=== PATIENT | male | born 1975 | race Caucasian/White ===

== ENCOUNTER 2020-07-23 01:07 | Inpatient (IN) | payer MEDICARE, SELFPAY ==
[2020-07-23] VITALS (16 sets, daily range): BP systolic 134–165; BP diastolic 75–99; PULSE 89–111; RESP 16–20; TEMP 36.5–36.9; O2SAT 95–100; BMI 27.7
[2020-07-23 01:45] LABS: COVID19 -Nasal RAPID Negative (Negative)
[2020-07-23 02:15] LABS: Add Manual Diff / Slide Review NO; Basophils Absolute Auto 100 /uL (0-100); Basophils Percent Auto 0.6 % (0-2); Eosinophils Absolute Auto 200 /uL (0-450); Eosinophils Percent Auto 1.9 % (2-4); Hematocrit 45.1 % (41-53); Hemoglobin 15.5 g/dL (13.5-17.5); Lymphocytes Absolute Auto 1300 /uL (1100-4500); Lymphocytes Percent Auto 14.8 % (25-40); Mean Corpuscular HGB Conc 34.3 % (30-36); Mean Corpuscular Hemoglobin 31.4 PG (26-34); Mean Corpuscular Volume 91.6 fL (80-100); Monocytes Absolute Auto 1000 /uL (0-900); Monocytes Percent Auto 11.5 % (3-14); Neutrophils Absolute Auto 6200 /uL (1500-7000); Neutrophils Percent Auto 71.2 % (50-75); Platelet Count 209 X10^3/uL (150-400); Red Blood Cell Count 4.93 X10^6/uL (4.5-5.9); White Blood Cell Count 8.7 X10^3/uL (4.5-11.0)
[2020-07-23] MEDS: KETOROLAC 60 MG/2 ML VIAL 15 MG IV (02:16)
[2020-07-23] MEDS: LACTATED RINGERS 1,000 ML 1000 ML IV (02:16)
[2020-07-23] MEDS: VANCOMYCIN 1,500 MG/300 ML PIGGYBACK 200 MG IV ×3 (02:19→18:59)
[2020-07-23 02:21] LABS: Lactate (Lactic Acid) 1.3 mmol/L (0.7-2.1)
[2020-07-23 02:25] LABS: D Dimer 595 ng/mL (<230)
[2020-07-23 02:31] LABS: Alanine Aminotransferase 61 IU/L (<50); Albumin 3.6 g/dL (3.5-5.0); Albumin Globulin Ratio 1.1 (1.0-2.8); Alkaline Phosphatase 126 U/L (38-126); Aspartate Aminotransferase 57 IU/L (17-59); BUN Creatinine Ratio 25.4 (6-22); Bilirubin Total 0.7 mg/dL (0.2-1.3); Blood Urea Nitrogen 17 mg/dL (9-20); Calcium 8.4 mg/dL (8.4-10.2); Carbon Dioxide 27 mmol/L (22-32); Chloride 102 mmol/L (98-107); Estimated Glomerular Filt Rate > 60.0 mL/min (>60); Globulin 3.3 g/dL (1.7-4.1); Glucose 137 mg/dL (70-100); HEMOLYSIS < 15 (0-50); Potassium 3.5 mmol/L (3.4-5.1); Sodium 133 mmol/L (137-145); Total Protein 6.9 g/dL (6.3-8.2)
--- NOTE | 2020-07-23 02:34 | DI.US.S_ITS ---
PROCEDURE: US PERIPH VENOUS LOW EXTREM RT INDICATIONS: pain, red, swelling, elevated DDimer TECHNIQUE: Real-time imaging, as well as color and pulse Doppler interrogation, were performed of the lower extremity deep veins from the inguinal ligament to the popliteal fossa. COMPARISON: None. FINDINGS: The common femoral, femoral and popliteal veins are normally compressible, and free of intraluminal thrombus. Color and pulse Doppler demonstrate normal phasic intraluminal flow. There is normal augmentation response to distal compression maneuver. Enlarged right groin lymph node is noted which could be reactive or neoplastic IMPRESSION: 1. No evidence of deep vein thrombosis involving the right lower extremity. 2. Enlarged right groin lymph node which could be reactive or neoplastic. Dictated by: Fiordaliza Piper MD, PhD on 07/23/2020 at 8:54 Approved by: Fiordaliza Piper MD, PhD on 07/23/2020 at 9:00
[2020-07-23 02:45] LABS: Procalcitonin 0.46 ng/mL (<0.5)
[2020-07-23 03:00] LABS: Erythrocyte Sedimentation Rate 26 MM/HR (0-15)
--- NOTE | 2020-07-23 03:02 | ED_ITS ---
HPI - Extremity Problem General Chief complaint: Extremity Problem,Nontraumatic Stated complaint: infection Time Seen by Provider: 07/23/20 01:12 Source: patient Mode of arrival: Ambulatory Limitations: no limitations History of Present Illness HPI Narrative: 44-year-old male daily smoker without other contributory medical history presents with a chief complaint of fever as high as 102, nausea, chills and significant right leg pain with swelling and redness from his ankle around his calf and up to his medial thigh. There is some red streaking along his medial thigh. He denies any history of IV drug abuse. He has had MRSA in the past in his right wrist. He denies runny nose, sore throat or cough. He denies any chest pain or shortness of breath. His pain is worse with ambulation and improves with rest. MD Complaint: extremity pain and extremity swelling Onset (ago): day(s) Pain Consistency: constant Location: right and lower extremity Quality: burning, stabbing and aching Radiation: proximal Relieving factors: rest Exacerbating factors: range of motion, weight bearing and walking Associated symptoms: fever Related Data Home Medications Medication Instructions Recorded Confirmed No Known Home Medications 07/23/20 07/23/20 Allergies Allergy/AdvReac Type Severity Reaction Status Date / Time No Known Allergies Allergy Verified 07/23/20 08:25 Review of Systems Constitutional Constitutional: Reports chills, Denies fatigue, Reports fever(s), Denies frequent falls, Denies lethargy and Denies weakness Eyes Eyes: Denies change in vision, Denies eye discharge, Denies irritation and Denies loss of vision ENT Ears, Nose, Mouth, and Throat: Denies change in voice, Denies dizziness, Denies neck pain, Denies sore throat and Denies throat swelling Cardiovascular Cardiovascular: Denies chest pain, Denies irregular heart rhythm, Denies lightheadedness, Denies palpitations, Denies dyspnea, Denies dyspnea on exertion and Denies orthopnea Respiratory Respiratory: Denies cough, Denies dyspnea, Denies dyspnea on exertion and Denies wheezing Gastrointestinal Gastrointestinal: Denies abdominal pain, Denies change in bowel habits, Denies diarrhea, Denies nausea and Denies vomiting Musculoskeletal Musculoskeletal: Denies neck pain and Denies numbness Integumentary/Breasts Skin/Breast: Denies pruritus, Reports erythema, Denies rash, Reports skin swelling and Denies wounds Neurologic Neurologic: Denies behavioral changes, Denies confusion, Denies dizziness, Denies frequent falls, Denies loss of vision, Denies numbness and Denies weakness Psychiatric Psychiatric: Denies anxiety, Denies behavioral changes, Denies confusion, Denies depression, Denies homicidal ideation and Denies suicidal ideation Endocrine Endocrine: Denies fatigue, Denies flushing and Denies palpitations Hematologic/Lymphatic Hematologic/Lymphatic: Denies easy bruising Allergic/Immunologic Allergic/Immunologic: Denies urticaria, Denies throat swelling and Denies wheezing Patient History Medical History Cellulitis History of MRSA infection Surgical History History of hand surgery History of lumbosacral spine surgery Hx of cervical spine surgery Family History (Updated 07/23/20 @ 17:36 by Shahana Mccormick DO) Mother Medical history unknown Father No problems noted. Social History household members: significant other Smoking Status: Current every day smoker alcohol intake: never Smoking Status: Current every day smoker Substance Use Type: does not use Exam Narrative Exam Narrative: GENERAL: [44] year old patient appears stated age. Well- nourished, well-developed patient, in moderate distress, appears uncomfortable HEAD: Atraumatic. Normocephalic. EYES: Pupils equal round and reactive. Extraocular motions intact. No scleral icterus. No injection or drainage. ENT: Nose without bleeding, purulent drainage. Throat without erythema, tonsillar hypertrophy or exudate. Airway patent. NECK: Trachea midline. Non tender CARDIOVASCULAR: Regular rate and rhythm without murmurs, gallops, or rubs. RESPIRATORY: Clear to auscultation. Breath sounds equal bilaterally. No wheezes, rales, or rhonchi. GASTROINTESTINAL: Abdomen soft, non-tender, nondistended. EXTREMITIES: Pain, redness and warmth and distal right lower extremity most notable proximal to medial malleolus. Additionally there is redness, warmth and tenderness on the medial thigh proximal to near the groin. BACK: Nontender without deformity or crepitance. No flank tenderness. NEURO: AOx3. SKIN: Otherwise No rash or erythema of visible areas Initial Vital Signs Initial Vital Signs: Vital Signs Temperature 98.5 F 07/23/20 01:15 Pulse Rate 100 H 07/23/20 01:15 Respiratory Rate 19 07/23/20 01:15 Blood Pressure 165/97 H 07/23/20 01:15 Pulse Oximetry 100 07/23/20 01:15 Course Orders Ordered: Acetaminophen (Acetaminophen 325 Mg Tablet) 650 mg PO Q6HR PRN PRN Reason: Fever/Mild Pain (1-3) Last Admin: 07/23/20 09:38 Dose: 650 mg Documented by: MICHAEL Hydrocodone Bitart/Acetaminophen (Hydrocodone/Acet 5/325 Tablet) 2 tab PO Q4HR PRN PRN Reason: Pain, Severe (7-10) Last Admin: 07/23/20 14:17 Dose: 2 tab Documented by: Admin: 07/23/20 10:34 Dose: 2 tab Documented by: TIM Al Hydrox/Mg Hydrox/Simethicone (Mag Hydrox/Alum/Simeth 30 Ml Udc) 30 ml PO Q6HR PRN PRN Reason: Dyspepsia Bisacodyl (Bisacodyl 10 Mg Supp) 10 mg [place] DAILY PRN PRN Reason: Constipation Calcium Carbonate (Calcium Carbonate 500 Mg Tab) 1,000 mg PO Q4HR PRN PRN Reason: Dyspepsia Enoxaparin Sodium (Enoxaparin 40 Mg/0.4 Ml Syringe) 40 mg SUBCUT DAILY [facility] Last Admin: 07/23/20 09:38 Dose: 40 mg Documented by: MICHAEL Sodium Chloride (Normal Saline 0.9%) 1,000 mls @ 100 mls/hr IV CONT [facility] Last Admin: 07/23/20 09:39 Dose: 100 mls/hr Documented by: MICHAEL Ceftriaxone Sodium/Dextrose (Rocephin) 2 gm in 50 mls @ 100 mls/hr IV Q24H [facility] Last Infusion: 07/23/20 10:23 Dose: 0 mls/hr Documented by: Admin: 07/23/20 09:38 Dose: 100 mls/hr Documented by: MICHAEL Vancomycin HCl/Dextrose (Vancomycin) 1,500 mg in 300 mls @ 200 mls/hr IV Q8H [facility] Last Infusion: 07/23/20 14:49 Dose: 0 mls/hr Documented by: Admin: 07/23/20 10:36 Dose: 200 mls/hr Documented by: TIM Ibuprofen (Ibuprofen 600 Mg Tablet) 600 mg PO Q6HR PRN PRN Reason: Fever/Mild Pain (1-3) Last Admin: 07/23/20 09:37 Dose: 600 mg Documented by: MICHAEL Magnesium Hydroxide (Magnesium Hydroxide 30 Ml Udc) 30 ml PO DAILY PRN PRN Reason: Constipation Naloxone HCl (Naloxone 0.4 Mg/Ml Vial) 0.2 mg IV Q2MIN PRN PRN Reason: Opiate Reversal Ondansetron HCl (Ondansetron 4 Mg/2 Ml Inj) 4 mg IV Q8HR PRN PRN Reason: Nausea And Vomiting Promethazine HCl (Promethazine 12.5 Mg Supp) 12.5 mg [place] Q6HR PRN PRN Reason: Nausea And Vomiting Vancomycin HCl (Vancomycin Trough) 1 request MISC NOW ONE Stop: 07/24/20 01:31 Discontinued Medications Hydromorphone HCl (Hydromorphone 1 Mg Inj) 1 mg IV NOW ONE Stop: 07/23/20 05:30 Last Admin: 07/23/20 05:41 Dose: 1 mg Documented by: ORVILLE Lactated Ringer's (Lactated Ringers) 1,000 mls @ 1,000 mls/hr IV BOLUS ONE Stop: 07/23/20 02:45 Last Infusion: 07/23/20 03:31 Dose: 0 mls/hr Documented by: Admin: 07/23/20 02:16 Dose: 1,000 mls/hr Documented by: MALLORY Vancomycin HCl/Dextrose (Vancomycin) 1,500 mg in 300 mls @ 200 mls/hr IV NOW ONE Stop: 07/23/20 03:17 Last Infusion: 07/23/20 03:49 Dose: 0 mls/hr Documented by: Admin: 07/23/20 02:19 Dose: 200 mls/hr Documented by: MALLORY Ceftriaxone Sodium/Dextrose (Rocephin) 2 gm in 50 mls @ 100 mls/hr IV NOW ONE Stop: 07/23/20 08:49 Last Admin: 07/23/20 10:39 Dose: Not Given Documented by: TIM Ketorolac Tromethamine (Ketorolac 60 Mg/2 Ml Vial) 15 mg IV NOW ONE Stop: 07/23/20 01:47 Last Admin: 07/23/20 02:16 Dose: 15 mg Documented by: MALLORY Vancomycin HCl (Vancomycin Per Pharmacy) 1 request MISC NOW ONE Stop: 07/23/20 09:25 Last Admin: 07/23/20 09:59 Dose: 1 request Documented by: CHRISTIELANKHARI Vital Signs Vital signs: Vital Signs - 8 hr 07/23/20 01:15 Temperature 98.5 F Pulse Rate 100 H Respiratory Rate 19 Blood Pressure 165/97 H Pulse Oximetry 100 MDM - Extremity (Nontraumatic) Lab Data Result diagrams: 07/23/20 02:00 07/23/20 02:00 Labs: Lab Results 07/23/20 07/23/20 07/23/20 Range/Units 01: 02:00 02:00 WBC 8.7 (4.5-11.0) X10^3/uL RBC 4.93 (4.5-5.9) X10^6/uL Hgb 15.5 (13.5-17.5) g/dL Hct 45.1 (41-53) % MCV 91.6 (80-100) fL MCH 31.4 (26-34) PG MCHC 34.3 (30-36) % RDW 13.0 (11.6-14.8) % Plt Count 209 (150-400) X10^3/uL Neut % (Auto) 71.2 (50-75) % Lymph % (Auto) 14.8 L (25-40) % [place] % (Auto) 11.5 (3-14) % Eos % (Auto) 1.9 L (2-4) % Baso % (Auto) 0.6 (0-2) % Neut # (Auto) 6200 (5571-9543) /uL Lymph # (Auto) 1300 (5940-9330) /uL [place] # (Auto) 1000 H (0-900) /uL Eos # (Auto) 200 (0-450) /uL Baso # (Auto) 100 (0-100) /uL ESR 26 H (0-15) MM/HR D-Dimer 595 H (<230) ng/mL Sodium (137-145) mmol/L Potassium (3.4-5.1) mmol/L Chloride (98-107) mmol/L Carbon Dioxide (22-32) mmol/L BUN (9-20) mg/dL Creatinine (0.66-1.25) mg/dL Estimated GFR (>60) mL/min BUN/Creatinine Ratio (6-22) Glucose (70-100) mg/dL Hemoglobin A1c (4.0-6.0) % Lactate (0.7-2.1) mmol/L Calcium (8.4-10.2) mg/dL Total Bilirubin (0.2-1.3) mg/dL AST (17-59) IU/L ALT (<50) IU/L Alkaline Phosphatase (38-126) U/L C-Reactive Protein (<1.0) mg/dL Total Protein (6.3-8.2) g/dL Albumin (3.5-5.0) g/dL Globulin (1.7-4.1) g/dL Albumin/Globulin Ratio (1.0-2.8) Procalcitonin (<0.5) ng/mL COVID-19 PCR Negative (Negative) 07/23/20 07/23/20 07/23/20 Range/Units 02:00 02:00 02:00 WBC (4.5-11.0) X10^3/uL RBC (4.5-5.9) X10^6/uL Hgb (13.5-17.5) g/dL Hct (41-53) % MCV (80-100) fL MCH (26-34) PG MCHC (30-36) % RDW (11.6-14.8) % Plt Count (150-400) X10^3/uL Neut % (Auto) (50-75) % Lymph % (Auto) (25-40) % [place] % (Auto) (3-14) % Eos % (Auto) (2-4) % Baso % (Auto) (0-2) % Neut # (Auto) (1390-1696) /uL Lymph # (Auto) (1513-6118) /uL [place] # (Auto) (0-900) /uL Eos # (Auto) (0-450) /uL Baso # (Auto) (0-100) /uL ESR (0-15) MM/HR D-Dimer (<230) ng/mL Sodium 133 L (137-145) mmol/L Potassium 3.5 (3.4-5.1) mmol/L Chloride 102 (98-107) mmol/L Carbon Dioxide 27 (22-32) mmol/L BUN 17 (9-20) mg/dL Creatinine 0.67 (0.66-1.25) mg/dL Estimated GFR > 60.0 (>60) mL/min BUN/Creatinine Ratio 25.4 H (6-22) Glucose 137 H (70-100) mg/dL Hemoglobin A1c (4.0-6.0) % Lactate 1.3 (0.7-2.1) mmol/L Calcium 8.4 (8.4-10.2) mg/dL Total Bilirubin 0.7 (0.2-1.3) mg/dL AST 57 (17-59) IU/L ALT 61 H (<50) IU/L Alkaline Phosphatase 126 (38-126) U/L C-Reactive Protein 22.0 H (<1.0) mg/dL Total Protein 6.9 (6.3-8.2) g/dL Albumin 3.6 (3.5-5.0) g/dL Globulin 3.3 (1.7-4.1) g/dL Albumin/Globulin Ratio 1.1 (1.0-2.8) Procalcitonin 0.46 (<0.5) ng/mL COVID-19 PCR (Negative) 07/23/20 Range/Units 02:00 WBC (4.5-11.0) X10^3/uL RBC (4.5-5.9) X10^6/uL Hgb (13.5-17.5) g/dL Hct (41-53) % MCV (80-100) fL MCH (26-34) PG MCHC (30-36) % RDW (11.6-14.8) % Plt Count (150-400) X10^3/uL Neut % (Auto) (50-75) % Lymph % (Auto) (25-40) % [place] % (Auto) (3-14) % Eos % (Auto) (2-4) % Baso % (Auto) (0-2) % Neut # (Auto) (8347-4600) /uL Lymph # (Auto) (7559-3362) /uL [place] # (Auto) (0-900) /uL Eos # (Auto) (0-450) /uL Baso # (Auto) (0-100) /uL ESR (0-15) MM/HR D-Dimer (<230) ng/mL Sodium (137-145) mmol/L Potassium (3.4-5.1) mmol/L Chloride (98-107) mmol/L Carbon Dioxide (22-32) mmol/L BUN (9-20) mg/dL Creatinine (0.66-1.25) mg/dL Estimated GFR (>60) mL/min BUN/Creatinine Ratio (6-22) Glucose (70-100) mg/dL Hemoglobin A1c 5.7 (4.0-6.0) % Lactate (0.7-2.1) mmol/L Calcium (8.4-10.2) mg/dL Total Bilirubin (0.2-1.3) mg/dL AST (17-59) IU/L ALT (<50) IU/L Alkaline Phosphatase (38-126) U/L C-Reactive Protein (<1.0) mg/dL Total Protein (6.3-8.2) g/dL Albumin (3.5-5.0) g/dL Globulin (1.7-4.1) g/dL Albumin/Globulin Ratio (1.0-2.8) Procalcitonin (<0.5) ng/mL COVID-19 PCR (Negative) Imaging Data US - DVT: Radiologist's Impression: Chart Viewer Diagnostics DATE TYPE STATUS REF RANGE/AUTHOR Hx Today 03:56 Jesus Vaz Today 02:34 Fiordaliza Piper DominickIssac E 44, M1975 [facility] [place], AC 220 -1 185.42cm 95.254kg BMI: 27.7kg/m? Search Chart No Data to Display ONSET Today 16:18 Issac Tan 44 M [address] [id number] ReportSigned Patient: Issac TanMR#: [id number]: [id number]:[id number]/Sex: 44 / MDate of Service: 07/23/20Loc: [id number] Number: [id number] Procedure: perip venous low extrem rt Ordering Provider: Issac Fry D.O. PROCEDURE: US PERIP VENOUS LOW EXTREM RT INDICATIONS: pain, red, swelling, elevated DDimer TECHNIQUE: Real-time imaging, as well as color and pulse Doppler interrogation, were performed of the lower extremity deep veins from the inguinal ligament to the popliteal fossa. COMPARISON: None. FINDINGS: The common femoral, femoral and popliteal veins are normally compressible, and free of intraluminal thrombus. Color and pulse Doppler demonstrate normal phasic intraluminal flow. There is normal augmentation response to distal compression maneuver. Enlarged right groin lymph node is noted which could be reactive or neoplastic IMPRESSION: 1. No evidence of deep vein thrombosis involving the right lower extremity. 2. Enlarged right groin lymph node which could be reactive or neoplastic. Dictated by: Fiordaliza Piper MD, PhD on 07/23/2020 at 8:54 Approved by: Fiordaliza Piper MD, PhD on 07/23/2020 at 9:00 CT LE: Radiologist's Impression: Issac Tan 44 M [address] Scan ReportSigned Patient: Issac TanMR#: [id number]: [id number]:[id number]/Sex: 44 / MDate of Service: 07/23/20Loc: [id number] Number: [id number] Procedure: CT LE RT w con Ordering Provider: Issac Fry D.O. PROCEDURE: CT LE RT W CON INDICATIONS: pain, swelling, redness, septic, medial ankle to hip TECHNIQUE: After the administration of intravenous contrast, 2 mm axial sections acquired of the iliac crest through the ankle , with coronal and sagittal reformats. COMPARISON: None. FINDINGS: Image quality: Excellent. Bones: No fracture identified. No focal osseous destruction seen. Mild to m oderate right hip joint degeneration with subchondral sclerosis and cystic changes. Subcentimeter presumed bone islands in the talus and distal tibia. Soft tissues: Circumferential subcutaneous edema is present throughout the calf and ankle, most notably along the medial aspect. No discrete abscess is seen. No subfascial changes or soft tissue gas is identified. The muscles and vessels are otherwise grossly unremarkable. Enlarged right external iliac and right inguinal lymph nodes are noted measuring up to 1.8 cm. IMPRESSION: Diffuse subcutaneous edema/cellulitis as above involving the right lower leg and medial ankle. No discrete abscess. Enlarged right inguinal lymph nodes, measuring up to 1.8 cm in short axis. These could be reactive given the right lower extremity inflammatory changes described above, although recommend follow-up as necessary. Findings concordant with the preliminary study interpretation provided at the time of the exam. Dictated by: Jesus Vaz M.D. on 07/23/2020 at 8:02 Approved by: Jesus Vaz M.D. on 07/23/2020 at 8:08 Discharge Plan Departure Patient Disposition: Admitted As Inpatient Clinical Impression: Cellulitis Admit Date/Time: 07/23/20 07:31 Admit Provider: Shahana Mccormick
--- NOTE | 2020-07-23 03:56 | DI.CT.S_ITS ---
PROCEDURE: CT LE RT W CON INDICATIONS: pain, swelling, redness, septic, medial ankle to hip TECHNIQUE: After the administration of intravenous contrast, 2 mm axial sections acquired of the iliac crest through the ankle , with coronal and sagittal reformats. COMPARISON: None. FINDINGS: Image quality: Excellent. Bones: No fracture identified. No focal osseous destruction seen. Mild to moderate right hip joint degeneration with subchondral sclerosis and cystic changes. Subcentimeter presumed bone islands in the talus and distal tibia. Soft tissues: Circumferential subcutaneous edema is present throughout the calf and ankle, most notably along the medial aspect. No discrete abscess is seen. No subfascial changes or soft tissue gas is identified. The muscles and vessels are otherwise grossly unremarkable. Enlarged right external iliac and right inguinal lymph nodes are noted measuring up to 1.8 cm. IMPRESSION: Diffuse subcutaneous edema/cellulitis as above involving the right lower leg and medial ankle. No discrete abscess. Enlarged right inguinal lymph nodes, measuring up to 1.8 cm in short axis. These could be reactive given the right lower extremity inflammatory changes described above, although recommend follow-up as necessary. Findings concordant with the preliminary study interpretation provided at the time of the exam. Dictated by: Jesus Vaz M.D. on 07/23/2020 at 8:02 Approved by: Jesus Vaz M.D. on 07/23/2020 at 8:08
[2020-07-23] MEDS: HYDROMORPHONE 1 MG INJ IV (05:41)
[2020-07-23] MEDS: IBUPROFEN 600 MG TABLET PO (09:37)
[2020-07-23] MEDS: ACETAMINOPHEN 325 MG TABLET 650 MG PO (09:38)
[2020-07-23] MEDS: ENOXAPARIN 40 MG/0.4 ML SYRINGE SUBCUT (09:38)
[2020-07-23] MEDS: CEFTRIAXONE 2 GM/50 ML FROZ.PIGGY IV (09:38)
[2020-07-23] MEDS: SODIUM CHLORIDE 0.9% 1,000 ML 100 ML IV (09:39)
[2020-07-23 09:51] LABS: Hemoglobin A1C% w Est Avg Glu 5.7 % (4.0-6.0)
[2020-07-23] MEDS: VANCOMYCIN PER PHARMACY 1 REQUEST MISC (09:59)
--- NOTE | 2020-07-23 10:14 | PC.NURSE ---
Addendum entered by Sima Gramajo R.N. 07/23/20 14:46: Patient medicated with 2 vicodin and helpful. He is getting vanco for iv antibiotics. Denies pain. Urinal bedside as we need to get a sample for a toxicology screen. Original Note: Assess- Patient is A&Ox3, he states that he is having some pain to his front rajput and back rajput. He has some redness and errythema to the top of his thigh, rajput, and back of leg. Given ibuprofen and tylenol for discomfort. He is on NS at 100cc/hr and has a good appetite. He is afebrile at this time. Admission being done by JOE Cisneros. He seems to be comfortable at this time.
[2020-07-23] MEDS: HYDROCODONE/ACET 5/325 TABLET 2 TAB PO ×3 (10:34→22:21)
[2020-07-23 16:22] LABS: UR Morphine/Opiate cutoff 300 Negative (Negative); Ur Creatinine Normal (Normal); Ur Specific Gravity Normal (Normal); Urine Amphetamines Positive (Negative); Urine Barbiturates Negative (Negative); Urine Benzodiazepines Negative (Negative); Urine Cocaine Negative (Negative); Urine MDMA Negative (Negative); Urine Methadone Negative (Negative); Urine Methamphetamines Positive (Negative); Urine Oxycodone Negative (Negative); Urine Phencyclidine Negative (Negative); Urine Tetrahydrocannabinol Negative (Negative); Urine Tricyclic Antidepressant Negative (Negative); Urine pH Normal (Normal)
--- NOTE | 2020-07-23 17:32 | P.HP_ITS ---
History of Present Illness History of Present Illness Date Patient Seen: 07/23/20 Chief complaint: infection Narrative: Issac Tan is a 44-year-old male with past medical history significant for tobacco dependence and previous MRSA right hand tenosynovitis status post I&D and washout 2 years ago who presented to the ED with right lower extremity pain, erythema and edema. The patient reports that he has had increasing pain and progressive redness and swelling of his right lower extremity for 2 days. He had associated high fevers up to 102.5 , chills and rigors. He reports he was confused and li not remember a lot of 07/21. He asked his girlfriend to bring him to the ED because of the persistence of his symptoms. He denies trauma or bug bites to his right leg. He does have a couple cracks and small ulcerations in between his third and fourth and fourth and fifth toes. He denies IVDU. He was positive for methamphetamines and amphetamines on urine toxicology screen and reports his girlfriend occasionally smokes methamphetamines but he adamantly denies use. He endorses previous headache and an episode of shortness of breath and chest tightness during a high fever. He currently denies headache, chest pain or tightness, shortness of breath, abdominal pain, nausea, vomiting, fever, chills, dysuria, diarrhea or constipation. ED course: Vital signs: Temperature 98.5? F, blood pressure 165/97, heart rate 100, respiratory rate 19, SpO2 100% on room air. CT right lower extremity with contrast demonstrated diffuse subcutaneous edema/cellulitis of right lower leg and medial ankle with no discrete abscess and enlarged right inguinal lymph nodes, measuring up to 1.8 cm. Venous Doppler ultrasound was negative for DVT. No PCP Patient History Medical History (Updated 07/24/20 @ 01:27 by Shahana Mccormick DO) Cellulitis History of MRSA infection Sprain of left shoulder Tobacco dependence Surgical History History of hand surgery History of lumbosacral spine surgery Hx of cervical spine surgery Family & Social History Family History (Updated 07/23/20 @ 17:36 by Shahana Mccormick DO) Mother Medical history unknown Father No problems noted. Social History: household members significant other Prior Living Arrangements RV Safety & Behavioral: Feels Safe in Current Yes Environment Suicidal Ideation Description None Suicide Plan Description No Plan Tobacco & Substance use: Tobacco type cigarettes, 1-5 cigarettes a day Smoking Status Current every day smoker alcohol intake never Substance Use Type denies use Patient has a significant other and 2 healthy daughters. 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 Meds Home Medications and Allergies Home Medications Medication Instructions Recorded Confirmed Type No Known Home Medications 07/23/20 07/23/20 History Allergies Allergy/AdvReac Type Severity Reaction Status Date / Time No Known Allergies Allergy Verified 07/23/20 08:25 Review of Systems Review of Systems Narrative: A 10 system comprehensive review of systems was conducted with the patient and found to be negative except as above in the History of Present Illness. Exam Vital Signs (past 8 hours): - 07/23/20 11:07 07/23/20 16:18 Temperature 98.1 F 97.7 F Pulse Rate 101 H 111 H Respiratory Rate 16 18 Blood Pressure 134/78 151/99 H Pulse Oximetry 97 95 Oxygen Delivery Method Room Air Oxygen Flow Rate 0 Narrative Exam Narrative: General: Young male sitting in bed and in no acute distress, well-developed, well-nourished, appropriately interactive. HEENT: Normocephalic, atraumatic. External ears without defect. Pupils equal, round, and reactive to light. Anicteric sclerae, moist conjunctivae, and no lid lag. Oropharynx free of erythema and cobble stoning with moist mucosa. Neck: Supple with full range of motion. No lymphadenopathy or thyromegaly. Cardiovascular: Regular rhythm, mild tachycardia without murmurs, rubs, or gallops appreciated Pulmonary: Clear to auscultation bilaterally without crackles, wheezes, or rhonchi. Normal respiratory effort with no use of accessory muscles. Abdomen: Soft, bowel sounds present, nontender, nondistended. No hepatosplenomegaly or masses appreciated. Extremities: No clubbing, cyanosis, or edema of other extremities. Right lower extremity with mild circumfrential edema and scattered and significant erythema in some areas from ankle to knee with lymphangitis and streaking up mediial thigh which has all been outlined and is contained in margins. Tattoo is present on right leg making it difficult to appreciate erythema in some areas. Two small cracks/breaks in skin with small ulcerations in between his third and fourth and fourth and fifth toes. Skin: Normal temperature, turgor, and texture; no rash, ulcers, or subcutaneous nodules appreciated. Neurological: Cranial nerves grossly intact. Psychiatric: Normal mood and affect. Alert and oriented to person, place, and time. Objective Labs Result Diagrams: 07/23/20 02:00 07/23/20 02:00 Labs: Laboratory Results - last 24 hr 07/23/20 07/23/20 07/23/20 01:20 02:00 02:00 WBC 8.7 RBC 4.93 Hgb 15.5 Hct 45.1 MCV 91.6 MCH 31.4 MCHC 34.3 RDW 13.0 Plt Count 209 Neut % (Auto) 71.2 Lymph % (Auto) 14.8 L [place] % (Auto) 11.5 Eos % (Auto) 1.9 L Baso % (Auto) 0.6 Neut # (Auto) 6200 Lymph # (Auto) 1300 [place] # (Auto) 1000 H Eos # (Auto) 200 Baso # (Auto) 100 ESR 26 H D-Dimer 595 H Sodium Potassium Chloride Carbon Dioxide BUN Creatinine Estimated GFR BUN/Creatinine Ratio Glucose Hemoglobin A1c Lactate Calcium Total Bilirubin AST ALT Alkaline Phosphatase C-Reactive Protein Total Protein Albumin Globulin Albumin/Globulin Ratio Procalcitonin U Opiates 300ng/mL cut Ur Oxycodone Screen Urine Methadone Screen Ur Barbiturates Screen U Tricyclic Antidepress Ur Phencyclidine Scrn Ur Amphetamines Screen U Methamphetamines Scrn Ur MDMA Scrn (Ecstasy) U Benzodiazepines Scrn Urine Cocaine Screen U Marijuana (THC) Screen COVID-19 PCR Negative 07/23/20 07/23/20 07/23/20 02:00 02:00 02:00 WBC RBC Hgb Hct MCV MCH MCHC RDW Plt Count Neut % (Auto) Lymph % (Auto) [place] % (Auto) Eos % (Auto) Baso % (Auto) Neut # (Auto) Lymph # (Auto) [place] # (Auto) Eos # (Auto) Baso # (Auto) ESR D-Dimer Sodium 133 L Potassium 3.5 Chloride 102 Carbon Dioxide 27 BUN 17 Creatinine 0.67 Estimated GFR > 60.0 BUN/Creatinine Ratio 25.4 H Glucose 137 H Hemoglobin A1c Lactate 1.3 Calcium 8.4 Total Bilirubin 0.7 AST 57 ALT 61 H Alkaline Phosphatase 126 C-Reactive Protein 22.0 H Total Protein 6.9 Albumin 3.6 Globulin 3.3 Albumin/Globulin Ratio 1.1 Procalcitonin 0.46 U Opiates 300ng/mL cut Ur Oxycodone Screen Urine Methadone Screen Ur Barbiturates Screen U Tricyclic Antidepress Ur Phencyclidine Scrn Ur Amphetamines Screen U Methamphetamines Scrn Ur MDMA Scrn (Ecstasy) U Benzodiazepines Scrn Urine Cocaine Screen U Marijuana (THC) Screen COVID-19 PCR 07/23/20 07/23/20 02:00 16:14 WBC RBC Hgb Hct MCV MCH MCHC RDW Plt Count Neut % (Auto) Lymph % (Auto) [place] % (Auto) Eos % (Auto) Baso % (Auto) Neut # (Auto) Lymph # (Auto) [place] # (Auto) Eos # (Auto) Baso # (Auto) ESR D-Dimer Sodium Potassium Chloride Carbon Dioxide BUN Creatinine Estimated GFR BUN/Creatinine Ratio Glucose Hemoglobin A1c 5.7 Lactate Calcium Total Bilirubin AST ALT Alkaline Phosphatase C-Reactive Protein Total Protein Albumin Globulin Albumin/Globulin Ratio Procalcitonin U Opiates 300ng/mL cut Negative Ur Oxycodone Screen Negative Urine Methadone Screen Negative Ur Barbiturates Screen Negative U Tricyclic Antidepress Negative Ur Phencyclidine Scrn Negative Ur Amphetamines Screen Positive H U Methamphetamines Scrn Positive H Ur MDMA Scrn (Ecstasy) Negative U Benzodiazepines Scrn Negative Urine Cocaine Screen Negative U Marijuana (THC) Screen Negative COVID-19 PCR Assessment & Plan Assessment & Plan narrative: Issac Tan is a 44-year-old male with past medical history significant for tobacco dependence and previous MRSA right hand tenosynovitis status post I&D and washout 2 years ago who presented to the ED with right lower extremity pain, erythema and edema. 1. Acute right lower extremity nonpurulent cellulitis, present on admission. Active. -Patient presented with progressive worsening right lower extremity pain, erythema, and edema with associated high fevers, chills and rigors. -CT right lower extremity with contrast demonstrated diffuse subcutaneous edema/cellulitis of right lower leg and medial ankle with no discrete abscess and enlarged right inguinal lymph nodes, measuring up to 1.8 cm. -UDS positive for methamphetamines and amphetamines. Patient denies use and reports signficant other smokes it around him. Consulted DIRECTOR BIOLOGICS for CD assessment. -Venous Doppler ultrasound was negative for DVT. -ESR elevated at 26 and CRP elevated at 22. -Initial WBC 8.7 and procalcitonin 0.46. Continue to monitor CBC and procalcitonin daily. -Received vancomycin in ED. Continue vancomycin with dosing per pharmacist and ceftriaxone 2 g IV daily. -Continue conservative management and keep right lower extremity dry, clean, and elevated above the level of the heart. 2. Prediabetes, newly diagnosed, chronic, present on admission. Stable. -Hemoglobin A1c 5.7% which is just on the cusp of prediabetes which places patient at higher risk of infection and delayed wound healing. -Counseled the patient on lifestyle modification including diet and exercise. -Consulted dietitian, pending. 3. Tobacco dependence, chronic, present on admission. Stable. -Patient reports he smokes 1-5 cigarettes a day and would like to quit. Counseled the patient extensively on smoking cessation. -Ordered Nicoderm patch daily as needed to avoid nicotine withdrawal. Code status: Full code VTE prophylaxis: Enoxaparin Patient is admitted under inpatient status with expected length of stay greater than 2 midnights due to severity of presenting symptoms, risk of adverse event, and complexity of treatment plan.
[2020-07-24 00:05] VITALS: BP 154/96; PULSE 103; RESP 14; TEMP 36.8; O2SAT 94
[2020-07-24] MEDS: SODIUM CHLORIDE 0.9% 1,000 ML 100 ML IV (00:06)
[2020-07-24 02:00] VITALS: O2SAT 94
[2020-07-24] MEDS: VANCOMYCIN TROUGH 1 REQUEST MISC (02:23)
[2020-07-24] MEDS: HYDROCODONE/ACET 5/325 TABLET 2 TAB PO ×2 (02:23→08:25)
[2020-07-24] MEDS: VANCOMYCIN 1,500 MG/300 ML PIGGYBACK 200 MG IV (02:23)
[2020-07-24 04:05] VITALS: BP 133/80; PULSE 86; RESP 18; TEMP 37.2; O2SAT 95
[2020-07-24 06:00] VITALS: O2SAT 95
[2020-07-24 08:00] VITALS: BP 145/80; PULSE 81; RESP 16; TEMP 36; O2SAT 98
[2020-07-24 08:42] LABS: Alanine Aminotransferase 65 IU/L (<50); Albumin 3.6 g/dL (3.5-5.0); Albumin Globulin Ratio 1.1 (1.0-2.8); Alkaline Phosphatase 139 U/L (38-126); Aspartate Aminotransferase 51 IU/L (17-59); BUN Creatinine Ratio 18.8 (6-22); Bilirubin Total 0.6 mg/dL (0.2-1.3); Blood Urea Nitrogen 12 mg/dL (9-20); Calcium 8.6 mg/dL (8.4-10.2); Carbon Dioxide 28 mmol/L (22-32); Chloride 105 mmol/L (98-107); Estimated Glomerular Filt Rate > 60.0 mL/min (>60); Globulin 3.2 g/dL (1.7-4.1); Glucose 97 mg/dL (70-100); HEMOLYSIS < 15 (0-50); Magnesium 2.1 mg/dL (1.6-2.3); Potassium 3.9 mmol/L (3.4-5.1); Sodium 136 mmol/L (137-145); Total Protein 6.8 g/dL (6.3-8.2)
[2020-07-24 08:51] LABS: Add Manual Diff / Slide Review NO; Basophils Absolute Auto 100 /uL (0-100); Basophils Percent Auto 0.8 % (0-2); Eosinophils Absolute Auto 300 /uL (0-450); Eosinophils Percent Auto 3.8 % (2-4); Hematocrit 43.8 % (41-53); Hemoglobin 14.8 g/dL (13.5-17.5); Lymphocytes Absolute Auto 1400 /uL (1100-4500); Lymphocytes Percent Auto 17.8 % (25-40); Mean Corpuscular HGB Conc 33.9 % (30-36); Mean Corpuscular Hemoglobin 31.5 PG (26-34); Mean Corpuscular Volume 92.9 fL (80-100); Monocytes Absolute Auto 1000 /uL (0-900); Monocytes Percent Auto 12.5 % (3-14); Neutrophils Absolute Auto 5200 /uL (1500-7000); Neutrophils Percent Auto 65.1 % (50-75); Platelet Count 230 X10^3/uL (150-400); Red Blood Cell Count 4.71 X10^6/uL (4.5-5.9); Red Cell Distribution Width 13.1 % (11.6-14.8); White Blood Cell Count 7.9 X10^3/uL (4.5-11.0)
[2020-07-24 09:11] LABS: Procalcitonin 0.24 ng/mL (<0.5)
--- NOTE | 2020-07-24 11:27 | PM.DS.1 ---
History of Present Illness History of Present Illness Chief complaint: infection Narrative: Written by myself Dr. Mccormick: Issac Tan is a 44-year-old male with past medical history significant for tobacco dependence and previous MRSA right hand tenosynovitis status post I&D and washout 2 years ago who presented to the ED with right lower extremity pain, erythema and edema. The patient reports that he has had increasing pain and progressive redness and swelling of his right lower extremity for 2 days. He had associated high fevers up to 102.5 , chills and rigors. He reports he was confused and li not remember a lot of 07/21. He asked his girlfriend to bring him to the ED because of the persistence of his symptoms. He denies trauma or bug bites to his right leg. He does have a couple cracks and small ulcerations in between his third and fourth and fourth and fifth toes. He denies IVDU. He was positive for methamphetamines and amphetamines on urine toxicology screen and reports his girlfriend occasionally smokes methamphetamines but he adamantly denies use. He endorses previous headache and an episode of shortness of breath and chest tightness during a high fever. He currently denies headache, chest pain or tightness, shortness of breath, abdominal pain, nausea, vomiting, fever, chills, dysuria, diarrhea or constipation. ED course: Vital signs: Temperature 98.5? F, blood pressure 165/97, heart rate 100, respiratory rate 19, SpO2 100% on room air. CT right lower extremity with contrast demonstrated diffuse subcutaneous edema/cellulitis of right lower leg and medial ankle with no discrete abscess and enlarged right inguinal lymph nodes, measuring up to 1.8 cm. Venous Doppler ultrasound was negative for DVT. No PCP Discharge Providers Provider Date of admission: 07/23/20 07:31 Discharge Date: 07/24/20 Consults: 07/23/20 09:24 Consult to Discharge Planning Routine Comment: 07/24/20 01:17 Consult to SALES SUPPORT ADVISOR - Inbound Ingredient Logistics Specialist Routine Comment: SALES SUPPORT ADVISOR Consult: Substance Abuse Assess 07/24/20 01:18 Consult to Dietitian, Adult Routine Comment: Reason For Exam: prediabetes Discharge provider: Shahana Mccormick DO Summary Hospital Course Discharge Diagnosis: 1. Left against medical advice. 2. Acute right lower extremity nonpurulent cellulitis, present on admission. Active. 3. Prediabetes, newly diagnosed, chronic, present on admission. Stable. 4. Tobacco dependence, chronic, present on admission. Stable. 5. Positive urine toxicology for methamphetamines, present on admission. Active. Hospital Course: Issac Tan is a 44-year-old male with past medical history significant for tobacco dependence and previous MRSA right hand tenosynovitis status post I&D and washout 2 years ago who presented to the ED with right lower extremity pain, erythema and edema. 1. Left against medical advice. -Patient reported he needed to arrange childcare and requested to leave and come back to the hospital later. Informed patient that he need to remain hospitalized for continued IV antibiotics of which the patient refused replacement of IV and re-initiation of IV antibiotics. Questionable withdrawal from methamphetamines which the patient adamantly denied as below. 2. Acute right lower extremity nonpurulent cellulitis, present on admission. Active. -Patient presented with progressive worsening right lower extremity pain, erythema, and edema with associated high fevers, chills and rigors. -CT right lower extremity with contrast demonstrated diffuse subcutaneous edema/cellulitis of right lower leg and medial ankle with no discrete abscess and enlarged right inguinal lymph nodes, measuring up to 1.8 cm. -Venous Doppler ultrasound was negative for DVT. -ESR elevated at 26 and CRP elevated at 22. -Initial WBC 8.7 and procalcitonin 0.46. Continued to monitor CBC and procalcitonin daily. -Continued conservative management and kept right lower extremity dry, clean, and elevated above the level of the heart. -Received vancomycin in ED. Continued vancomycin with dosing per pharmacist and ceftriaxone 2 g IV daily. Patient accidentally pulled out IV and refused replacement of IV and restarting IV antibiotics. He left against medical advice. Reluctantly prescribed the patient Bactrim DS twice daily and Keflex 500 mg 4 times daily for 9 additional days to complete 10 days total therapy. 3. Prediabetes, newly diagnosed, chronic, present on admission. Stable. -Hemoglobin A1c 5.7% which is just on the cusp of prediabetes which places patient at higher risk of infection and delayed wound healing. -Counseled the patient on lifestyle modification including diet and exercise. -Consulted dietitian but not obtained as patient left AMA. 4. Tobacco dependence, chronic, present on admission. Stable. -Patient reports he smokes 1-5 cigarettes a day and would like to quit. Counseled the patient extensively on smoking cessation. -Ordered Nicoderm patch daily as needed to avoid nicotine withdrawal. 5. Positive urine toxicology for methamphetamines, present on admission. Active. -UDS positive for methamphetamines and amphetamines. Patient denies use and reports his significant other smokes it around him but does endorse previous use. Questionable withdrawal from methamphetamines and patient was in the bathroom for prolonged period of time 30-45 minutes and was highly anxious and left Against Medical Advice. Consulted SALES SUPPORT ADVISOR for CD assessment and we appreciate her time and recommendations. Exam Vital Signs (past 8 hours): - 07/24/20 04:05 07/24/20 06:00 07/24/20 08:00 Temperature 99.0 F 96.8 F L Pulse Rate 86 81 Respiratory Rate 18 16 Blood Pressure 133/80 145/80 H Pulse Oximetry 95 95 98 Oxygen Delivery Method Room Air Oxygen Flow Rate 0 Narrative Exam Narrative: General: Young male sitting in bed and in no acute distress, well-developed, well-nourished, highly anxious and irritable. HEENT: Normocephalic, atraumatic. External ears without defect. Pupils equal, round, and reactive to light. Anicteric sclerae, moist conjunctivae, and no lid lag. Oropharynx free of erythema and cobble stoning with moist mucosa. Neck: Supple with full range of motion. No lymphadenopathy or thyromegaly. Cardiovascular: Regular rhythm, tachycardic, without murmurs, rubs, or gallops appreciated. Pulmonary: Clear to auscultation bilaterally without crackles, wheezes, or rhonchi. Normal respiratory effort with no use of accessory muscles. Abdomen: Soft, bowel sounds present, nontender, nondistended. No hepatosplenomegaly or masses appreciated. Extremities: No clubbing, cyanosis, or edema of other extremities. Right lower extremity with mild circumfrential edema and scattered and significant erythema in some areas but improved from ankle to knee with lymphangitis and streaking up medial thigh which has all been outlined and is contained and retracting slightly in margins and slight improvement. Tattoo is present on right leg which made it difficult to appreciate erythema in some areas. Two small cracks/breaks in skin with small ulcerations in between his third and fourth and fourth and fifth toes. Skin: Normal temperature, turgor, and texture; no rash, ulcers, or subcutaneous nodules appreciated. Neurological: Cranial nerves grossly intact. Psychiatric: Highly anxious and irritable mood and affect. Alert and oriented to person, place, and time. Poor insight. Objective Labs Result Diagrams: 07/24/20 08:24 07/24/20 08:24 Labs: Laboratory Results - last 24 hr 07/23/20 07/24/20 07/24/20 16:14 01:30 08:24 WBC 7.9 RBC 4.71 Hgb 14.8 Hct 43.8 MCV 92.9 MCH 31.5 MCHC 33.9 RDW 13.1 Plt Count 230 Neut % (Auto) 65.1 Lymph % (Auto) 17.8 L [place] % (Auto) 12.5 Eos % (Auto) 3.8 Baso % (Auto) 0.8 Neut # (Auto) 5200 Lymph # (Auto) 1400 [place] # (Auto) 1000 H Eos # (Auto) 300 Baso # (Auto) 100 Sodium Potassium Chloride Carbon Dioxide BUN Creatinine Estimated GFR BUN/Creatinine Ratio Glucose Calcium Magnesium Total Bilirubin AST ALT Alkaline Phosphatase Total Protein Albumin Globulin Albumin/Globulin Ratio Procalcitonin Vancomycin Trough 10.0 U Opiates 300ng/mL cut Negative Ur Oxycodone Screen Negative Urine Methadone Screen Negative Ur Barbiturates Screen Negative U Tricyclic Antidepress Negative Ur Phencyclidine Scrn Negative Ur Amphetamines Screen Positive H U Methamphetamines Scrn Positive H Ur MDMA Scrn (Ecstasy) Negative U Benzodiazepines Scrn Negative Urine Cocaine Screen Negative U Marijuana (THC) Screen Negative 07/24/20 07/24/20 08:24 08:24 WBC RBC Hgb Hct MCV MCH MCHC RDW Plt Count Neut % (Auto) Lymph % (Auto) [place] % (Auto) Eos % (Auto) Baso % (Auto) Neut # (Auto) Lymph # (Auto) [place] # (Auto) Eos # (Auto) Baso # (Auto) Sodium 136 L Potassium 3.9 Chloride 105 Carbon Dioxide 28 BUN 12 Creatinine 0.64 L Estimated GFR > 60.0 BUN/Creatinine Ratio 18.8 Glucose 97 Calcium 8.6 Magnesium 2.1 Total Bilirubin 0.6 AST 51 ALT 65 H Alkaline Phosphatase 139 H Total Protein 6.8 Albumin 3.6 Globulin 3.2 Albumin/Globulin Ratio 1.1 Procalcitonin 0.24 Vancomycin Trough U Opiates 300ng/mL cut Ur Oxycodone Screen Urine Methadone Screen Ur Barbiturates Screen U Tricyclic Antidepress Ur Phencyclidine Scrn Ur Amphetamines Screen U Methamphetamines Scrn Ur MDMA Scrn (Ecstasy) U Benzodiazepines Scrn Urine Cocaine Screen U Marijuana (THC) Screen Discharge Plan Discharge Plan Patient Disposition: Left Against Medical Advice Discharge orders & Medications Prescriptions: New sulfamethoxazole-trimethoprim [Bactrim DS] 800-160 mg tablet 1 tab PO BID Qty: 18 RF: 0 cephalexin [Keflex] 500 mg capsule 500 mg PO QID Qty: 36 RF: 0
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
--- NOTE | 2020-07-24 14:03 | PC.NURSE ---
Discharge: Pt removed IV this am accidentally. Asking if he will be discharged as he has events occurring in his personel life he needs to attend to. He refused to allow staff to restart IV. He refused lovenox. MD June made aware and she spoke with him about why he should stay and his need for antibiotics. He initially said he would stay. He went into the bathroom and was there for 45 mins. He was partially dressed when he emerged, he was rubbing his eyes and stretching. Pt reported he had to leave and he had to leave now. MD june came and saw pt again. Pt did sign AMA form and left hospital.
--- NOTE | 2020-07-28 12:32 | CM.DPNOTE ---
Late entry: Pt. called nurses station 07/27/20 saying he could not retrieve his prescription from pharmacy. I attempted to call pt. 3 times and left message and no response. Angely Kearney CM Asst.
== END 2020-07-27 13:44 | disposition home or self-care (01) | DRG 603 ==
LOC: ED 01:32 → AC 08:10
PROVIDERS: Admitting Provider Internal Medicine; Emergency Provider Emergency Medicine; Referring Provider Emergency Medicine; Visit Provider Internal Medicine
DX: L03.115 Cellulitis of right lower limb (principal); R73.03 Prediabetes; Z53.29 Procedure and treatment not carried out because of patient's decision for other reasons; F17.210 Nicotine dependence, cigarettes, uncomplicated; Z86.14 Personal history of Methicillin resistant Staphylococcus aureus infection; R74.02 Elevation of levels of lactic acid dehydrogenase [LDH]
CPT/HCPCS: 36415; 73701; 80048; 80053; 80202; 80305; 81001; 83036; 83605; 83735; 84145; 85025; 85379; 85651; 86140; 87040; 87635; 93971; 96365; 96375; 97162; 99282; 99283; 99284; J0696; J1170; J1650; J1885; J2543; Q9967

== ENCOUNTER 2020-07-24 18:09 | Inpatient (IN) | payer MEDICARE, SELFPAY ==
[2020-07-23 10:01] VITALS: BMI 27.7
[2020-07-24] VITALS (11 sets, daily range): BP systolic 138–168; BP diastolic 70–90; PULSE 78–112; RESP 16–21; TEMP 36.9–37.1; O2SAT 96–99; BMI 28.3
--- NOTE | 2020-07-24 18:20 | ED.SKABFB ---
HPI - Skin/Abscess/Foreign Bdy General Chief complaint: Skin/Abscess/Foreign Body Stated complaint: Leg infection Time Seen by Provider: 07/24/20 18:10 Source: patient Mode of arrival: Wheelchair Limitations: no limitations History of Present Illness HPI narrative: 44M daily smoker with recent diagnosis of left leg cellulitis with hospitalization returns for readmission. I personally admitted him yesterday and he signed out AMA earlier today from the floor because he apparently had to go home to arrange childcare for his two children. He returns, very apologetic Karla and states he is ready and willing to stay. He continues to feel poorly with subjective fever and chills, poor appetite occasional sweats and claims to have increasing pain and redness of his right leg. Related Data Previous Rx's Medication Instructions Recorded cephalexin [Keflex] 500 mg PO QID #36 cap 07/24/20 sulfamethoxazole-trimethoprim 1 tab PO BID #18 tab 07/24/20 [Bactrim DS] Allergies Allergy/AdvReac Type Severity Reaction Status Date / Time No Known Allergies Allergy Verified 07/24/20 18:18 Review of Systems Constitutional Constitutional: Reports chills, Denies fatigue, Reports fever(s), Denies frequent falls, Denies lethargy and Denies weakness Eyes Eyes: Denies change in vision, Denies eye discharge, Denies irritation and Denies loss of vision ENT Ears, Nose, Mouth, and Throat: Denies change in voice, Denies dizziness, Denies neck pain, Denies sore throat and Denies throat swelling Cardiovascular Cardiovascular: Denies chest pain, Denies irregular heart rhythm, Denies lightheadedness, Denies palpitations, Denies dyspnea, Denies dyspnea on exertion and Denies orthopnea Respiratory Respiratory: Denies cough, Denies dyspnea, Denies dyspnea on exertion and Denies wheezing Gastrointestinal Gastrointestinal: Denies abdominal pain, Denies change in bowel habits, Denies diarrhea, Denies nausea and Denies vomiting Musculoskeletal Musculoskeletal: Denies neck pain and Denies numbness Integumentary/Breasts Skin/Breast: Denies pruritus, Reports erythema, Denies rash, Reports skin pain, Reports skin swelling and Denies wounds Neurologic Neurologic: Denies behavioral changes, Denies confusion, Denies dizziness, Denies frequent falls, Denies loss of vision, Denies numbness and Denies weakness Psychiatric Psychiatric: Denies anxiety, Denies behavioral changes, Denies confusion, Denies depression, Denies homicidal ideation and Denies suicidal ideation Endocrine Endocrine: Denies fatigue, Denies flushing and Denies palpitations Hematologic/Lymphatic Hematologic/Lymphatic: Denies easy bruising Allergic/Immunologic Allergic/Immunologic: Denies urticaria, Denies throat swelling and Denies wheezing Patient History Medical History Cellulitis History of MRSA infection Sprain of left shoulder Tobacco dependence Surgical History History of hand surgery History of lumbosacral spine surgery Hx of cervical spine surgery Family History Mother Medical history unknown Father No problems noted. Social History household members: significant other Smoking Status: Current every day smoker alcohol intake: current Smoking Status: Current every day smoker Substance Use Type: does not use Exam Narrative Exam Narrative: GEN: AOx3 and in mild distress, appears unwell EYES: Pupils are equal, round, and reactive to light and accommodation. Extraoccular muscles are intact bilaterally. There is no subconjunctival hemorrhage or exudate. CHEST: Lungs are clear to auscultation bilaterally and free of wheezes, rales, or rhonchi. Heart rate is regular rhythm, there are no murmurs, clicks, rubs, or gallops. There is no chest wall tenderness. ABD: Abdomen is soft and nontender. There is no guarding or rebound. Bowel sounds are normal in all 4 quadrants. There is no mass or organomegaly. EXT: Full painless ROM of all extremities with no loss of sensation or strength. SKIN: Right lower extremity redness, pain, warmth, swelling, perhaps a bit worse than yesterday starting at his right ankle and extending to the knee with lymphangitis of medial thigh. Warm, pink, and dry. No erythema or rash Initial Vital Signs Initial Vital Signs: Vital Signs Pulse Rate 101 H 07/24/20 18:16 Respiratory Rate 16 07/24/20 18:16 Blood Pressure 161/90 H 07/24/20 18:16 Pulse Oximetry 99 07/24/20 18:16 Course Orders Ordered: ED Orders 07/24/20 19:10 Complete Blood Count AUTO DIFF Stat Comprehensive Metabolic Panel Stat Lactate (Lactic Acid) Stat Procalcitonin Stat 07/24/20 19:28 COVID19 Stat Acetaminophen (Acetaminophen 325 Mg Tablet) 650 mg PO Q6HR PRN PRN Reason: Fever/Mild Pain (1-3) Al Hydrox/Mg Hydrox/Simethicone (Mag Hydrox/Alum/Simeth 30 Ml Udc) 30 ml PO Q6HR PRN PRN Reason: Dyspepsia Bisacodyl (Bisacodyl 10 Mg Supp) 10 mg MA DAILY PRN PRN Reason: Constipation Calcium Carbonate (Calcium Carbonate 500 Mg Tab) 1,000 mg PO Q4HR PRN PRN Reason: Dyspepsia Docusate Sodium (Docusate 100 Mg Capsule) 100 mg PO BID CHANELL Enoxaparin Sodium (Enoxaparin 40 Mg/0.4 Ml Syringe) 40 mg SUBCUT DAILY ON LICENSE OF [facility] Sodium Chloride (Normal Saline 0.9%) 1,000 mls @ 100 mls/hr IV CONT ON LICENSE OF [facility] Last Admin: 07/24/20 22:10 Dose: 100 mls/hr Documented by: NORTH Piperacillin/Tazobactam/Dextrose (Zosyn) 3.375 gm in 50 mls @ 100 mls/hr IV Q6H ON LICENSE OF [facility] Last Infusion: 07/24/20 22:47 Dose: 100 mls/hr Documented by: Admin: 07/24/20 22:10 Dose: 100 mls/hr Documented by: NORTH Vancomycin HCl/Dextrose (Vancomycin) 1,500 mg in 300 mls @ 200 mls/hr IV Q8H ON LICENSE OF [facility] Last Admin: 07/24/20 22:50 Dose: 200 mls/hr Documented by: EMIL Ibuprofen (Ibuprofen 600 Mg Tablet) 600 mg PO Q6HR PRN PRN Reason: Fever/Mild Pain (1-3) Naloxone HCl (Naloxone 0.4 Mg/Ml Vial) 0.2 mg IV Q2MIN PRN PRN Reason: Opiate Reversal Nicotine (Nicotine 14 Patch) 14 mg TOP DAILY ON LICENSE OF [facility] Ondansetron HCl (Ondansetron 4 Mg/2 Ml Inj) 4 mg IV Q8HR PRN PRN Reason: Nausea And Vomiting Oxycodone HCl (Oxycodone Ir 5 Mg Tablet) 5 mg PO Q6HR PRN PRN Reason: Pain, Moderate (4-6) Oxycodone HCl (Oxycodone Ir 10 Mg Tablet) 10 mg PO Q6HR PRN PRN Reason: Pain, Severe (7-10) Last Admin: 07/24/20 22:24 Dose: 10 mg Documented by: NORTH Vancomycin HCl (Vancomycin Per Pharmacy) 1 request MISC NOW ONE Stop: 07/24/20 21:16 Vancomycin HCl (Vancomycin Trough) 1 request MISC NOW ONE Stop: 07/25/20 13:31 Discontinued Medications Vancomycin HCl/Dextrose (Vancomycin) 1,500 mg in 300 mls @ 200 mls/hr IV Q12H CHANELL Sodium Chloride (Normal Saline 0.9%) 500 mls @ 1,000 mls/hr IV BOLUS ONE Stop: 07/24/20 22:37 Last Admin: 07/24/20 22:36 Dose: 1,000 mls/hr Documented by: EMIL Vital Signs Vital signs: Vital Signs - 8 hr 07/24/20 18:16 07/24/20 18:19 07/24/20 18:20 Temperature 98.8 F Pulse Rate 101 H 102 H Respiratory Rate 16 Blood Pressure 161/90 H Pulse Oximetry 99 97 07/24/20 18:30 07/24/20 18:31 07/24/20 19:12 Temperature Pulse Rate 112 H 109 H 94 H Respiratory Rate 18 Blood Pressure 168/76 H 144/82 H Pulse Oximetry 99 98 97 07/24/20 19:30 07/24/20 20:00 Temperature Pulse Rate 96 H 94 H Respiratory Rate 21 17 Blood Pressure 152/75 H 138/70 Pulse Oximetry 97 99 MDM - Skin/Abscess/Foreign Bdy Lab Data Result diagrams: 07/24/20 19:10 07/24/20 19:10 Labs: Lab Results 07/24/20 07/24/20 07/24/20 Range/Units 19:10 19:10 19:10 WBC 7.9 (4.5-11.0) X10^3/uL RBC 4.79 (4.5-5.9) X10^6/uL Hgb 15.1 (13.5-17.5) g/dL Hct 44.2 (41-53) % MCV 92.3 (80-100) fL MCH 31.6 (26-34) PG MCHC 34.2 (30-36) % RDW 13.3 (11.6-14.8) % Plt Count 241 (150-400) X10^3/uL Neut % (Auto) 71.6 (50-75) % Lymph % (Auto) 15.5 L (25-40) % [place] % (Auto) 9.1 (3-14) % Eos % (Auto) 3.0 (2-4) % Baso % (Auto) 0.8 (0-2) % Neut # (Auto) 5700 (9003-5289) /uL Lymph # (Auto) 1200 (4489-3878) /uL [place] # (Auto) 700 (0-900) /uL Eos # (Auto) 200 (0-450) /uL Baso # (Auto) 100 (0-100) /uL Sodium 137 (137-145) mmol/L Potassium 3.6 (3.4-5.1) mmol/L Chloride 102 (98-107) mmol/L Carbon Dioxide 31 (22-32) mmol/L BUN 11 (9-20) mg/dL Creatinine 0.67 (0.66-1.25) mg/dL Estimated GFR > 60.0 (>60) mL/min BUN/Creatinine Ratio 16.4 (6-22) Glucose 110 H (70-100) mg/dL Lactate (0.7-2.1) mmol/L Calcium 8.9 (8.4-10.2) mg/dL Total Bilirubin 0.6 (0.2-1.3) mg/dL AST 50 (17-59) IU/L ALT 64 H (<50) IU/L Alkaline Phosphatase 176 H (38-126) U/L C-Reactive Protein (<1.0) mg/dL Total Protein 7.1 (6.3-8.2) g/dL Albumin 3.7 (3.5-5.0) g/dL Globulin 3.4 (1.7-4.1) g/dL Albumin/Globulin Ratio 1.1 (1.0-2.8) Procalcitonin 0.19 (<0.5) ng/mL COVID-19 PCR (Negative) 07/24/20 07/24/20 07/24/20 Range/Units 19:10 19:10 19:28 WBC (4.5-11.0) X10^3/uL RBC (4.5-5.9) X10^6/uL Hgb (13.5-17.5) g/dL Hct (41-53) % MCV (80-100) fL MCH (26-34) PG MCHC (30-36) % RDW (11.6-14.8) % Plt Count (150-400) X10^3/uL Neut % (Auto) (50-75) % Lymph % (Auto) (25-40) % [place] % (Auto) (3-14) % Eos % (Auto) (2-4) % Baso % (Auto) (0-2) % Neut # (Auto) (9835-0607) /uL Lymph # (Auto) (6668-1734) /uL [place] # (Auto) (0-900) /uL Eos # (Auto) (0-450) /uL Baso # (Auto) (0-100) /uL Sodium (137-145) mmol/L Potassium (3.4-5.1) mmol/L Chloride (98-107) mmol/L Carbon Dioxide (22-32) mmol/L BUN (9-20) mg/dL Creatinine (0.66-1.25) mg/dL Estimated GFR (>60) mL/min BUN/Creatinine Ratio (6-22) Glucose (70-100) mg/dL Lactate 3.0 H (0.7-2.1) mmol/L Calcium (8.4-10.2) mg/dL Total Bilirubin (0.2-1.3) mg/dL AST (17-59) IU/L ALT (<50) IU/L Alkaline Phosphatase (38-126) U/L C-Reactive Protein 14.9 H (<1.0) mg/dL Total Protein (6.3-8.2) g/dL Albumin (3.5-5.0) g/dL Globulin (1.7-4.1) g/dL Albumin/Globulin Ratio (1.0-2.8) Procalcitonin (<0.5) ng/mL COVID-19 PCR Negative (Negative) Discharge Plan Departure Patient Disposition: Admitted as Observation Clinical Impression: Cellulitis Qualifiers: Site of cellulitis: extremity Site of cellulitis of extremity: lower extremity Laterality: left Qualified Code(s): L03.116 - Cellulitis of left lower limb Sepsis Qualifiers: Sepsis type: sepsis due to unspecified organism Sepsis acute organ dysfunction status: without acute organ dysfunction Qualified Code(s): A41.9 - Sepsis, unspecified organism Admit Date/Time: 07/24/20 20:10 Admit Provider: Jareth Juarez
[2020-07-24 19:27] LABS: Add Manual Diff / Slide Review NO; Basophils Absolute Auto 100 /uL (0-100); Basophils Percent Auto 0.8 % (0-2); Eosinophils Absolute Auto 200 /uL (0-450); Hematocrit 44.2 % (41-53); Hemoglobin 15.1 g/dL (13.5-17.5); Lymphocytes Absolute Auto 1200 /uL (1100-4500); Lymphocytes Percent Auto 15.5 % (25-40); Mean Corpuscular HGB Conc 34.2 % (30-36); Mean Corpuscular Hemoglobin 31.6 PG (26-34); Mean Corpuscular Volume 92.3 fL (80-100); Monocytes Absolute Auto 700 /uL (0-900); Monocytes Percent Auto 9.1 % (3-14); Neutrophils Absolute Auto 5700 /uL (1500-7000); Neutrophils Percent Auto 71.6 % (50-75); Platelet Count 241 X10^3/uL (150-400); Red Blood Cell Count 4.79 X10^6/uL (4.5-5.9); Red Cell Distribution Width 13.3 % (11.6-14.8); White Blood Cell Count 7.9 X10^3/uL (4.5-11.0)
[2020-07-24 19:31] LABS: Alanine Aminotransferase 64 IU/L (<50); Albumin 3.7 g/dL (3.5-5.0); Albumin Globulin Ratio 1.1 (1.0-2.8); Alkaline Phosphatase 176 U/L (38-126); Aspartate Aminotransferase 50 IU/L (17-59); BUN Creatinine Ratio 16.4 (6-22); Bilirubin Total 0.6 mg/dL (0.2-1.3); Blood Urea Nitrogen 11 mg/dL (9-20); Calcium 8.9 mg/dL (8.4-10.2); Carbon Dioxide 31 mmol/L (22-32); Chloride 102 mmol/L (98-107); Estimated Glomerular Filt Rate > 60.0 mL/min (>60); Globulin 3.4 g/dL (1.7-4.1); Glucose 110 mg/dL (70-100); HEMOLYSIS < 15 (0-50); Potassium 3.6 mmol/L (3.4-5.1); Sodium 137 mmol/L (137-145); Total Protein 7.1 g/dL (6.3-8.2)
[2020-07-24 19:49] LABS: Procalcitonin 0.19 ng/mL (<0.5)
[2020-07-24 19:54] LABS: COVID19 -Nasal RAPID Negative (Negative)
[2020-07-24 21:16] LABS: Reflexed Lactate in 2 Hours Y
--- NOTE | 2020-07-24 22:07 | P.HP_ITS ---
History of Present Illness History of Present Illness Date Patient Seen: 07/24/20 Time Patient Seen: 21:43 Chief complaint: Leg infection Narrative: Issac Tan is a 44-year-old male with past medical history significant for tobacco dependence and previous MRSA right hand tenosynovitis status post I&D and washout 2 years ago who presented to the ED with worsening right leg pain redness and swelling. The patient was admitted to the hospital yesterday with diagnosis of cellulitis and chose to leave against medical advice this morning. He was refusing care removed his IV and does depart the facility stating he had ?family issues?. At that time the patient was discharged with antibiotics, Keflex 500 mg 4 times a day and Bactrim ds twice daily. The lizbeth ent returns this evening describing worsening pain requesting treatment. The patient has not picked up or started his antibiotic prescriptions. Patient complains of generalized aches and pains, fevers and chills but denies headaches or dizziness or nausea vomiting. He has no complaints of chest pain or palpitations, shortness of breath cough or wheezing. He has no abdominal pain denies constipation with his last bowel movement being yesterday morning. He denies urinary symptoms. Upon arrival to the ER the patient is afebrile with a temperature 98.8?, tachycardic 1 1, blood pressure 161/90, respirations 16 saturating 99% on room air. No further imaging was undertaken. On laboratory analysis he has white count of 7.9, hemoglobin of 15.1, hematocrit of 44.2 and platelets of 241. His e lectrolytes are within normal limits and has a BUN of 11 and creatinine 0.67. His nonfasting glucose is 110. Has a total bilirubin 0.6, AST of 50, ALT of 64 and alkaline phosphatase of 176. Has elevated lactate at 3.0 and procalcitonin of 0.19. The patient is readmitted to the hospital service for worsening cellulitis. Patient History Medical History Cellulitis History of MRSA infection Sprain of left shoulder Tobacco dependence Surgical History History of hand surgery History of lumbosacral spine surgery Hx of cervical spine surgery Family & Social History Family History Mother Medical history unknown Father No problems noted. Social History: household members significant other Prior Living Arrangements Mobile home Safety & Behavioral: Feels Safe in Current Yes Environment Been Physically Hurt or No Threatened By a Person Suicidal Ideation Description None Suicide Plan Description No Plan Tobacco & Substance use: Tobacco type cigarettes Smoking Status Current every day smoker Smoking packs per day 0.5 alcohol intake current alcohol intake frequency other Substance Use Type does not use Meds Home Medications and Allergies Home Medications Medication Instructions Recorded Confirmed Type cephalexin [Keflex] 500 mg PO QID #36 cap 07/24/20 07/24/20 Rx sulfamethoxazole-trimethoprim 1 tab PO BID #18 tab 07/24/20 07/24/20 Rx [Bactrim DS] Allergies Allergy/AdvReac Type Severity Reaction Status Date / Time No Known Allergies Allergy Verified 07/24/20 18:18 Review of Systems Review of Systems ROS: Yes All systems reviewed with the patient and are negative except as otherwise documented Exam Vital Signs (past 8 hours): - 07/24/20 18:16 07/24/20 18:19 07/24/20 18:20 Temperature 98.8 F Pulse Rate 101 H 102 H Respiratory Rate 16 Blood Pressure 161/90 H Pulse Oximetry 99 97 07/24/20 18:30 07/24/20 18:31 07/24/20 19:12 Temperature Pulse Rate 112 H 109 H 94 H Respiratory Rate 18 Blood Pressure 168/76 H 144/82 H Pulse Oximetry 99 98 97 07/24/20 19:30 07/24/20 20:00 07/24/20 21:09 Temperature 98.7 F Pulse Rate 96 H 94 H 103 H Respiratory Rate 21 17 16 Blood Pressure 152/75 H 138/70 152/85 H Pulse Oximetry 97 99 96 Oxygen Delivery Method Room Air Narrative Exam Narrative: GENERAL APPEARANCE: well developed, well nourished,male lying semi recumbent in bed initially found somnolent requiring tactile and verbal stimulus to arouse becoming oriented and briskly interactive. HEENT: Normocephalic, PERRLA, conjunctiva clear, EOMs intact without nystagmus, no sinus tenderness to percussion, no rhinorrhea, mucous membranes are moist and pink without lesions or exudate. NECK/THYROID: neck supple, no JVD, no carotid bruit, no thyromegaly, trachea midline. LYMPH NODES: no cervical or supraclavicular lymphadenopathy. SKIN: [place], warm and dry, no visible lesions, rashes. HEART: regular rate and rhythm, S1-S2, no murmur, no rubs or gallops, brisk capillary refill, no edema LUNGS: clear to auscultation bilaterally, no coarseness crackles or wheezing, no cough present CHEST: Symmetrical movement, no accessory muscle use, good tidal volume. ABDOMEN: Soft, no distention, no abdominal tenderness, no guarding or peritoneal signs, no organomegaly, no flank or suprapubic tenderness, active bowel tones. EXTREMITIES: Marked swelling of the right lower extremity with redness extending beyond previous marked boundaries extending up to the medial thigh, lower leg is markedly tender to palpation distal CMS is intact, patient has been ambulatory, no deformities or joint effusions, Two small small ulcerations in between his third and fourth and fourth and fifth toes. NEUROLOGIC: Initial GCS 13 requiring tactile stimulation becoming AAO x4, no focal neurologic deficits, cranial nerves II-XII grossly intact, sensation intact to light touch, hearing grossly normal to speech. PSYCH: Patient initially is difficult to arouse with stimulus becomes confrontational and verbally aggressive. Objective Labs Result Diagrams: 07/24/20 19:10 07/24/20 19:10 Labs: Laboratory Results - last 24 hr 07/24/20 07/24/20 07/24/20 19:10 19:10 19:10 WBC 7.9 RBC 4.79 Hgb 15.1 Hct 44.2 MCV 92.3 MCH 31.6 MCHC 34.2 RDW 13.3 Plt Count 241 Neut % (Auto) 71.6 Lymph % (Auto) 15.5 L [place] % (Auto) 9.1 Eos % (Auto) 3.0 Baso % (Auto) 0.8 Neut # (Auto) 5700 Lymph # (Auto) 1200 [place] # (Auto) 700 Eos # (Auto) 200 Baso # (Auto) 100 Sodium 137 Potassium 3.6 Chloride 102 Carbon Dioxide 31 BUN 11 Creatinine 0.67 Estimated GFR > 60.0 BUN/Creatinine Ratio 16.4 Glucose 110 H Lactate Calcium 8.9 Total Bilirubin 0.6 AST 50 ALT 64 H Alkaline Phosphatase 176 H Total Protein 7.1 Albumin 3.7 Globulin 3.4 Albumin/Globulin Ratio 1.1 Procalcitonin 0.19 COVID-19 PCR 07/24/20 07/24/20 19:10 19:28 WBC RBC Hgb Hct MCV MCH MCHC RDW Plt Count Neut % (Auto) Lymph % (Auto) [place] % (Auto) Eos % (Auto) Baso % (Auto) Neut # (Auto) Lymph # (Auto) [place] # (Auto) Eos # (Auto) Baso # (Auto) Sodium Potassium Chloride Carbon Dioxide BUN Creatinine Estimated GFR BUN/Creatinine Ratio Glucose Lactate 3.0 H Calcium Total Bilirubin AST ALT Alkaline Phosphatase Total Protein Albumin Globulin Albumin/Globulin Ratio Procalcitonin COVID-19 PCR Negative Assessment & Plan Assessment & Plan narrative: Is a 44-year-old male patient who would per been admitted yesterday and signed out against medical advice yesterday and prescribe d oral antibiotics on discharge for continuing care. 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 1. Right lower extremity cellulitis, acute, present on admission, active. -Patient presented with progressive worsening right lower extremity pain, erythema, and edema with associated high fevers, chills. Redness has extended beyond previous the outlined areas. -CT right lower extremity with contrast obtained 07/23/2020: Diffuse subcutaneous edema/cellulitis as above involving the right lower leg and medial ankle. No discrete abscess, Enlarged right inguinal lymph nodes, measuring up to 1.8 cm in short axis. Venous duplex obtained 07/23/2020 finds no evidence of DVT and identifies previously mentioned lymphadenopathy. -urine drug screen on admission yesterday was positive for methamphetamines and amphetamines. Patient continues to deny methamphetamine use indicating his signficant other smokes it around him. UDS is repeated as the patient has left facility with concerns for further drug use. -WBC count is 7.9 consistent with this morning's lab.. He does present with an elevated lactate at 3.0 and procalcitonin is 0.19. Will recheck CRP. -will restart previous regimen of vancomycin dosing per pharmacy and due to expansion will add Zosyn 3.375 g IV every 6 hours. -will monitor CBC, procalcitonin and CRP. 2. Elevated lactate, acute, present on admission, active. -patient's lactated 3.0 on admission labs. -no clinical evidence of dehydration with BUN creatinine ratio of 16.4, good skin turgor the patient subjectively describes feeling dehydrated. -no IV fluids administered in the ER, ordered a 500 cc fluid bolus and normal saline 100 cc/hour. -patient refused lab draw for lactate monitoring. 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 The patient states understanding. Will recheck lactic acid. 2. Prediabetes, newly diagnosed, chronic, present on admission, stable. -blood glucose on admission is 110. Hemoglobin A1c was assessed on 07/23/2020 and found to be he is 5.7% reason to within the pre diabetes range. -patient is not significantly hyperglycemia though may be elevated in the setting current infection increasing risk and delaying healing. -will monitor serum glucose with chemistries. -requested dietitian to consult and evaluate. 3. Tobacco dependence, chronic, present on admission, stable. -Patient reports he smokes 1-5 cigarettes a day and makes nose statement of desire to quit, avoids the topic. -patient previously counseled the smoking cessation during admission yesterday. -ordered Nicoderm patch daily. VTE prophylaxis: Enoxaparin IV fluid: Normal saline 100 cc/hour. Diet: Consistent carb diet Code status: Full code, patient designates his significant other base surrogate decision maker. Patient is admitted to the hospital for worsening cellulitis requiring IV antibiotics. Patient is admitted as inpatient status with expected length stay to be greater than 2 midnights. Scores GCS Ml coma scale eye opening: Spontaneous Ml coma scale verbal response: Orientated [place] coma scale motor response: Obey commands Ml coma scale total score: 15 Quality VTE Deep Vein Thrombosis/Pulmonary Embolism Present on Admission: No
[2020-07-24] MEDS: SODIUM CHLORIDE 0.9% 1,000 ML 100 ML IV (22:10)
[2020-07-24] MEDS: PIPERACILLIN-TAZO 3.375 GM/50 ML FROZ.PIGGY IV (22:10)
[2020-07-24] MEDS: OXYCODONE IR 10 MG TABLET PO (22:24)
[2020-07-24 22:32] LABS: Bacteria Urine None Seen; RBC Urine None Seen (0-5/HPF)
[2020-07-24 22:35] LABS: Appearance Urine UA CLEAR; Bilirubin Urine UA NEGATIVE (NEGATIVE); Color Urine UA YELLOW; Glucose Urine UA NEGATIVE (Negative); Ketones Urine UA NEGATIVE (NEGATIVE); Leukocyte Esterase Urine UA NEGATIVE (NEGATIVE); Nitrite Urine UA NEGATIVE (Negative); Occult Blood Urine UA NEGATIVE (Negative); Protein Urine UA NEGATIVE (Negative); Urobilinogen Urine UA 0.2 E.U./dL (0.2); pH Urine UA 6.5 (4.5-8.0)
[2020-07-24] MEDS: SODIUM CHLORIDE 0.9% 500 ML 1000 ML IV (22:36)
[2020-07-24 22:38] LABS: C-Reactive Protein Quant 14.9 mg/dL (<1.0)
[2020-07-24 22:42] LABS: UR Morphine/Opiate cutoff 300 Positive (Negative); Ur Creatinine 20 (Normal); Urine Amphetamines Positive (Negative); Urine Barbiturates Negative (Negative); Urine Benzodiazepines Negative (Negative); Urine Cocaine Negative (Negative); Urine MDMA Negative (Negative); Urine Methadone Negative (Negative); Urine Methamphetamines Positive (Negative); Urine Oxycodone Negative (Negative); Urine Phencyclidine Negative (Negative); Urine Tetrahydrocannabinol Negative (Negative); Urine Tricyclic Antidepressant Negative (Negative); Urine pH 6.5 (Normal)
[2020-07-24 22:46] LABS: Culture Indicated Urine Cult Not Indicated; WBC Urine 0-1/HPF (0-5/HPF)
[2020-07-24] MEDS: VANCOMYCIN 1,500 MG/300 ML PIGGYBACK 200 MG IV (22:50)
--- NOTE | 2020-07-24 23:25 | PC.NURSE ---
Pt reports no drug usage, UA indicates otherwise. Pt occasionally aggressive to staff. Prior AMA, ripped out IV. Pt aware of consequences of future maladaptive behaviors and abuse of staff. Pt medicated for pain, currently sleeping. Agreeable to treatments after discussion with hospitalist. Receiving IV abx. Calf circumference measured and marked. Continue to monitor.
[2020-07-25] VITALS (9 sets, daily range): BP systolic 125–139; BP diastolic 68–84; PULSE 71–96; RESP 13–18; TEMP 36.6–37.2; O2SAT 95–98
--- NOTE | 2020-07-25 00:23 | PC.NURSE ---
2300 Received safe hand-off report. The patient is currently asleep, arousable to voice but quickly goes back to sleep. He is able to answer questions, but needs stimuli or repeated questions in order to answer. There is Vancomycin and NS @ 100mL/h going in the right AC. The bed alarm is on.
[2020-07-25 00:41] LABS: Lactate (Lactic Acid) 1.2 mmol/L (0.7-2.1)
[2020-07-25] MEDS: OXYCODONE IR 5 MG TABLET PO (05:06)
[2020-07-25] MEDS: PIPERACILLIN-TAZO 3.375 GM/50 ML FROZ.PIGGY IV ×4 (05:10→21:41)
[2020-07-25 05:12] LABS: Add Manual Diff / Slide Review NO; Basophils Absolute Auto 100 /uL (0-100); Basophils Percent Auto 0.7 % (0-2); Eosinophils Absolute Auto 300 /uL (0-450); Eosinophils Percent Auto 3.7 % (2-4); Hematocrit 44.1 % (41-53); Hemoglobin 14.9 g/dL (13.5-17.5); Lymphocytes Absolute Auto 1800 /uL (1100-4500); Lymphocytes Percent Auto 20.7 % (25-40); Mean Corpuscular HGB Conc 33.8 % (30-36); Mean Corpuscular Hemoglobin 31.3 PG (26-34); Mean Corpuscular Volume 92.6 fL (80-100); Monocytes Absolute Auto 1100 /uL (0-900); Monocytes Percent Auto 12.8 % (3-14); Neutrophils Absolute Auto 5300 /uL (1500-7000); Neutrophils Percent Auto 62.1 % (50-75); Platelet Count 238 X10^3/uL (150-400); Red Blood Cell Count 4.76 X10^6/uL (4.5-5.9); Red Cell Distribution Width 13.1 % (11.6-14.8); White Blood Cell Count 8.5 X10^3/uL (4.5-11.0)
[2020-07-25 05:20] LABS: BUN Creatinine Ratio 18.2 (6-22); Blood Urea Nitrogen 12 mg/dL (9-20); Calcium 8.5 mg/dL (8.4-10.2); Carbon Dioxide 28 mmol/L (22-32); Chloride 104 mmol/L (98-107); Estimated Glomerular Filt Rate > 60.0 mL/min (>60); Glucose 94 mg/dL (70-100); HEMOLYSIS < 15 (0-50); Sodium 135 mmol/L (137-145)
[2020-07-25 05:35] LABS: Procalcitonin 0.14 ng/mL (<0.5)
[2020-07-25] MEDS: VANCOMYCIN 1,500 MG/300 ML PIGGYBACK 200 MG IV ×3 (06:24→22:19)
[2020-07-25] MEDS: DOCUSATE 100 MG CAPSULE PO ×2 (09:20→21:42)
[2020-07-25] MEDS: NICOTINE 14 PATCH 14 MG TOP (09:20)
[2020-07-25] MEDS: ENOXAPARIN 40 MG/0.4 ML SYRINGE SUBCUT (09:21)
[2020-07-25] MEDS: ACETAMINOPHEN 325 MG TABLET 650 MG PO ×2 (11:24→18:34)
[2020-07-25] MEDS: SODIUM CHLORIDE 0.9% 1,000 ML 100 ML IV (11:25)
--- NOTE | 2020-07-25 12:33 | PC.NURSE ---
Addendum entered by Santy Rees R.N. 07/25/20 14:29: Patient has leg elevated on pillows w/ ice. Patient appears diaphoretic this afternoon, Dr. Mccormick aware. Patient has allevyn dressing placed on weeping skin ulcer. Addendum entered by Santy Rees R.N. 07/25/20 14:00: Dr. Mccormick saw patient and asked that we elevate his left leg above his heart and put compression samira wrap up to below the knee area. Original Note: Patient has been asleep and sedated on this shift. No pain medications given on this shift, or since 529. Patient is aroused to voice and touch. States that he has a 9/10 headache, was given 650mg of Tylenol for headache. Continues to be aroused and then falls asleep immediately. Is not complaining of leg pain. Legs are edematous 3+ edema non pitting. Patient has margins drawn for cellulitis and cellulitis is still within the margins drawn.
--- NOTE | 2020-07-25 14:07 | CM.DANOTE ---
DCP Assessment: EMR Reviewed: Patient is a 44 yr old male who was readmitted after leaving AMA 07/24/20 for Rt leg Cellulitus. patient has a hx of drug usage and positive Methamphetamines toxicology screen. Denia CRAWFORDW did DEANA assessment 07/24/20 and patient denies any drug usage. Patient currently lives in [place] and has two teenage children who live with there mother. Patient stated he left AMA because he had to set up progressive care nurse and then came back. Cm/ Rn met with patient at the bedside and explained role. patient was alert and oriented but was irritable, sweaty and shaky during visit. When asked if patient currently uses Meth patient stated he doesn't use and that he probably got meth in his system when he smoked out of his girl friends pipe. patient is not interested in treatment since he doesn't use and does not want resources at this time. I: Medicare and medicaid. Plan: Cm/RN spoke with patient about SNF as a possibility at D/c if he needs watermelon inspector IV antibiotics. patient stated he was open to the idea but doesn't want to go anywhere other than [facility]. Cm/RN called and left a message for josse at [facility] to review patient. If patient doesn't need IV ABX he want to D/c home with his girl friend when medically stable. QUALITY ASSURANCE SUPERVISOR TRIM to follow to assist with D/C plan. Lis Coto RN Discharge Planning/Care Management CM Discharge Assessment Start: 07/25/20 13:55 Freq: Status: Active Protocol: Document 07/25/20 13:56 HS (Rec: 07/25/20 14:07 [id number]) Discharge Planning Assessment Assigned Demonstrator Sewing Techniques Lis Coto RN Advance Directives? No History Provided By Patient,Medical Record Has Patient been admitted in last 30 Yes days? Comment patient left AMA on 07/24/20 came back later the same day for increased pain. Prior Living Arrangements Mobile home Household Members significant other Type of transporation used prior to Drives own vehicle admit Independent with ADL's Yes Is patient alert and oriented? Yes Caregiver for Another No Comment SNF VS home depending on ABX needs. Barriers to Discharge Yes Comment patient tested positive for Meth and needs to be here currently for IV abx D/C plan dependent on patient staying for treatment Discharge Plan Long-Term Facility Additional Comment may need halfway IV ABX.... Whiteboard Updated in Patient Room with Yes name and ext. # of Demonstrator Sewing Techniques Review Status In Process Next Review Type Continued Stay Review
--- NOTE | 2020-07-25 14:17 | PM.PN.1 ---
Subjective Subjective Date Patient Seen: 07/25/20 Interval history: Issac Tan is a 44-year-old male with past medical history significant for tobacco dependence and previous MRSA right hand tenosynovitis status post I&D and washout 2 years ago who was previously admitted for right lower extremity cellulitis and left AMA 07/24 with oral antibiotics which he never obtained and returned later that day for worsening pain swelling and redness of the right lower extremity. The patient is resting in bed comfortably He is mildly diaphoretic and irritable. He continues to deny use of methamphetamines or methamphetamine withdrawal. He reports he accidentally smoked tobacco from a vap that his girlfriend previously used to smoke methamphetamines and that is why his UDS is positive. He endorses headache which is likely a rebound headache from narcotics which have been discontinued. He continues to have left lower extremity pain but improved. He reports he just doesnt feel well. He denies cough, shortness of breath, chest pain, abdominal pain, nausea, vomiting, fever, chills, dysuria, diarrhea or constipation. He is voiding and eliminating without difficulty. He is up ambulating without assistance. Exam Vital Signs (past 8 hours): - 07/25/20 08:21 07/25/20 09:00 07/25/20 12:05 Temperature 98.3 F 97.8 F Pulse Rate 74 78 Respiratory Rate 16 16 Blood Pressure 133/68 139/75 Pulse Oximetry 96 07/25/20 13:00 Temperature Pulse Rate Respiratory Rate Blood Pressure Pulse Oximetry 98 Oxygen Delivery Method Room Air Oxygen Flow Rate 0 Narrative Exam Narrative: General: Young male sitting in bed and in no acute distress, well-developed, well-nourished, mild diaphoresis, irritable otherwise appropriately interactive. HEENT: Normocephalic, atraumatic. External ears without defect. Pupils equal, round, and reactive to light. Anicteric sclerae, moist conjunctivae, and no lid lag. Oropharynx free of erythema and cobble stoning with moist mucosa. Neck: Supple with full range of motion. No lymphadenopathy or thyromegaly. Cardiovascular: Regular rhythm, mild tachycardia without murmurs, rubs, or gallops appreciated Pulmonary: Clear to auscultation bilaterally without crackles, wheezes, or rhonchi. Normal respiratory effort with no use of accessory muscles. Abdomen: Soft, bowel sounds present, nontender, nondistended. No hepatosplenomegaly or masses appreciated. Extremities: No clubbing, cyanosis, or edema of other extremities. Right lower extremity with more substantial edema of forefoot and ankle and scattered erythema of leg from ankle to knee with lymphangitic spread up medial and anterior thigh which is improved and retracting within previously outlined margins. Tattoo is present on right leg which makes it difficult to appreciate erythema in some areas. Two small cracks/breaks in skin with small ulcerations in between his third and fourth and fourth and fifth toes.appear to be healing Skin: Normal temperature, turgor, and texture; no rash, ulcers, or subcutaneous nodules appreciated. Neurological: Cranial nerves grossly intact. Psychiatric: Irritable mood and affect. Alert and oriented to person, place, and time. Objective Labs Result Diagrams: 07/26/20 06:30 07/25/20 05:00 Labs: Laboratory Results - last 24 hr 07/24/20 07/24/20 07/24/20 19:10 19:10 19:10 WBC 7.9 RBC 4.79 Hgb 15.1 Hct 44.2 MCV 92.3 MCH 31.6 MCHC 34.2 RDW 13.3 Plt Count 241 Neut % (Auto) 71.6 Lymph % (Auto) 15.5 L [place] % (Auto) 9.1 Eos % (Auto) 3.0 Baso % (Auto) 0.8 Neut # (Auto) 5700 Lymph # (Auto) 1200 [place] # (Auto) 700 Eos # (Auto) 200 Baso # (Auto) 100 Sodium 137 Potassium 3.6 Chloride 102 Carbon Dioxide 31 BUN 11 Creatinine 0.67 Estimated GFR > 60.0 BUN/Creatinine Ratio 16.4 Glucose 110 H Lactate Calcium 8.9 Total Bilirubin 0.6 AST 50 ALT 64 H Alkaline Phosphatase 176 H C-Reactive Protein Total Protein 7.1 Albumin 3.7 Globulin 3.4 Albumin/Globulin Ratio 1.1 Procalcitonin 0.19 Urine Color Urine Appearance Urine pH Ur Specific [place] Urine Protein Urine Glucose (UA) Urine Ketones Urine Occult Blood Urine Nitrate Urine Bilirubin Urine Urobilinogen Ur Leukocyte Esterase Urine RBC Urine WBC Urine Bacteria Ur Culture Indicated? U Opiates 300ng/mL cut Ur Oxycodone Screen Urine Methadone Screen Ur Barbiturates Screen U Tricyclic Antidepress Ur Phencyclidine Scrn Ur Amphetamines Screen U Methamphetamines Scrn Ur MDMA Scrn (Ecstasy) U Benzodiazepines Scrn Urine Cocaine Screen U Marijuana (THC) Screen COVID-19 PCR 07/24/20 07/24/20 07/24/20 19:10 19:10 19:28 WBC RBC Hgb Hct MCV MCH MCHC RDW Plt Count Neut % (Auto) Lymph % (Auto) [place] % (Auto) Eos % (Auto) Baso % (Auto) Neut # (Auto) Lymph # (Auto) [place] # (Auto) Eos # (Auto) Baso # (Auto) Sodium Potassium Chloride Carbon Dioxide BUN Creatinine Estimated GFR BUN/Creatinine Ratio Glucose Lactate 3.0 H Calcium Total Bilirubin AST ALT Alkaline Phosphatase C-Reactive Protein 14.9 H Total Protein Albumin Globulin Albumin/Globulin Ratio Procalcitonin Urine Color Urine Appearance Urine pH Ur Specific [place] Urine Protein Urine Glucose (UA) Urine Ketones Urine Occult Blood Urine Nitrate Urine Bilirubin Urine Urobilinogen Ur Leukocyte Esterase Urine RBC Urine WBC Urine Bacteria Ur Culture Indicated? U Opiates 300ng/mL cut Ur Oxycodone Screen Urine Methadone Screen Ur Barbiturates Screen U Tricyclic Antidepress Ur Phencyclidine Scrn Ur Amphetamines Screen U Methamphetamines Scrn Ur MDMA Scrn (Ecstasy) U Benzodiazepines Scrn Urine Cocaine Screen U Marijuana (THC) Screen COVID-19 PCR Negative 07/24/20 07/24/20 07/25/20 22:30 22:30 00:20 WBC RBC Hgb Hct MCV MCH MCHC RDW Plt Count Neut % (Auto) Lymph % (Auto) [place] % (Auto) Eos % (Auto) Baso % (Auto) Neut # (Auto) Lymph # (Auto) [place] # (Auto) Eos # (Auto) Baso # (Auto) Sodium Potassium Chloride Carbon Dioxide BUN Creatinine Estimated GFR BUN/Creatinine Ratio Glucose Lactate 1.2 Calcium Total Bilirubin AST ALT Alkaline Phosphatase C-Reactive Protein Total Protein Albumin Globulin Albumin/Globulin Ratio Procalcitonin Urine Color Yellow Urine Appearance Clear Urine pH 6.5 Ur Specific [place] 1.020 Urine Protein Negative Urine Glucose (UA) Negative Urine Ketones Negative Urine Occult Blood Negative Urine Nitrate Negative Urine Bilirubin Negative Urine Urobilinogen 0.2 Ur Leukocyte Esterase Negative Urine RBC None seen Urine WBC 0-1/hpf Urine Bacteria None seen Ur Culture Indicated? Cult not indicated U Opiates 300ng/mL cut Positive H Ur Oxycodone Screen Negative Urine Methadone Screen Negative Ur Barbiturates Screen Negative U Tricyclic Antidepress Negative Ur Phencyclidine Scrn Negative Ur Amphetamines Screen Positive H U Methamphetamines Scrn Positive H Ur MDMA Scrn (Ecstasy) Negative U Benzodiazepines Scrn Negative Urine Cocaine Screen Negative U Marijuana (THC) Screen Negative COVID-19 PCR 07/25/20 07/25/20 07/25/20 05:00 05:00 05:00 WBC 8.5 RBC 4.76 Hgb 14.9 Hct 44.1 MCV 92.6 MCH 31.3 MCHC 33.8 RDW 13.1 Plt Count 238 Neut % (Auto) 62.1 Lymph % (Auto) 20.7 L [place] % (Auto) 12.8 Eos % (Auto) 3.7 Baso % (Auto) 0.7 Neut # (Auto) 5300 Lymph # (Auto) 1800 [place] # (Auto) 1100 H Eos # (Auto) 300 Baso # (Auto) 100 Sodium 135 L Potassium 4.0 Chloride 104 Carbon Dioxide 28 BUN 12 Creatinine 0.66 Estimated GFR > 60.0 BUN/Creatinine Ratio 18.2 Glucose 94 Lactate Calcium 8.5 Total Bilirubin AST ALT Alkaline Phosphatase C-Reactive Protein Total Protein Albumin Globulin Albumin/Globulin Ratio Procalcitonin 0.14 Urine Color Urine Appearance Urine pH Ur Specific [place] Urine Protein Urine Glucose (UA) Urine Ketones Urine Occult Blood Urine Nitrate Urine Bilirubin Urine Urobilinogen Ur Leukocyte Esterase Urine RBC Urine WBC Urine Bacteria Ur Culture Indicated? U Opiates 300ng/mL cut Ur Oxycodone Screen Urine Methadone Screen Ur Barbiturates Screen U Tricyclic Antidepress Ur Phencyclidine Scrn Ur Amphetamines Screen U Methamphetamines Scrn Ur MDMA Scrn (Ecstasy) U Benzodiazepines Scrn Urine Cocaine Screen U Marijuana (THC) Screen COVID-19 PCR 07/25/20 05:00 WBC RBC Hgb Hct MCV MCH MCHC RDW Plt Count Neut % (Auto) Lymph % (Auto) [place] % (Auto) Eos % (Auto) Baso % (Auto) Neut # (Auto) Lymph # (Auto) [place] # (Auto) Eos # (Auto) Baso # (Auto) Sodium Potassium Chloride Carbon Dioxide BUN Creatinine Estimated GFR BUN/Creatinine Ratio Glucose Lactate Calcium Total Bilirubin AST ALT Alkaline Phosphatase C-Reactive Protein 14.0 H Total Protein Albumin Globulin Albumin/Globulin Ratio Procalcitonin Urine Color Urine Appearance Urine pH Ur Specific [place] Urine Protein Urine Glucose (UA) Urine Ketones Urine Occult Blood Urine Nitrate Urine Bilirubin Urine Urobilinogen Ur Leukocyte Esterase Urine RBC Urine WBC Urine Bacteria Ur Culture Indicated? U Opiates 300ng/mL cut Ur Oxycodone Screen Urine Methadone Screen Ur Barbiturates Screen U Tricyclic Antidepress Ur Phencyclidine Scrn Ur Amphetamines Screen U Methamphetamines Scrn Ur MDMA Scrn (Ecstasy) U Benzodiazepines Scrn Urine Cocaine Screen U Marijuana (THC) Screen COVID-19 PCR Assessment & Plan Assessment & Plan narrative: Issac Tan is a 44-year-old male with past medical history significant for tobacco dependence and previous MRSA right hand tenosynovitis status post I&D and washout 2 years ago who was previously admitted for right lower extremity cellulitis and left AMA 07/24 with oral antibiotics which he never obtained and returned later that day for worsening pain swelling and redness of the right lower extremity. 1. Right lower extremity cellulitis, acute, present on admission, active. -Patient presented with progressive worsening right lower extremity pain, erythema, and edema with associated tacycardia, high fevers and chills. On admission, the erythema extended beyond previous the outlined margins. Patient has a history of previous MRSA hand infection. -Previous CT right lower extremity with contrast on 07/23/2020 diffuse subcutaneous edema/cellulitis of right lower leg and medial ankle with no discrete abscess and enlarged right inguinal lymph nodes, measuring up to 1.8 cm. If not improving readily with IV antibiotics and conservative means especially around foot and ankle consider repeat CT. -Previous Venous Doppler ultrasound was negative for DVT on 07/23/2020. -Initial WBC normal at 7.9 and procalcitonin normal 0.14. -Previous ESR elevated at 26 and CRP elevated at 22 now down to 14.0. -Restarted vancomycin with dosing per pharmacy and broadened antibiotic coverage with Zosyn 3.375 g IV every 6 hours to treat gram positive, gram negative, pseudomonas, and anaerobes. Patient did not fill previous prescription for Bactrim DS and keflex. -Continue conservative management and kept right lower extremity dry, clean, elevated above the level of the heart and wrapped with SAMUEL wrap for compression. 2. Acute lactic acidosis, present on admission. Resolved. -Secondary to right lower extremity cellulitis and treated as above. -Initial lactate 3.0 and resolved with IV fluids to 1.2. 3. Prediabetes, newly diagnosed, chronic, present on admission, stable. -Hemoglobin A1c 5.7% which is just on the cusp of prediabetes and places patient at higher risk of infection and delayed wound healing. -Counseled the patient on lifestyle modification including diet and exercise. -Consulted dietitian but not obtained as patient left AMA. 3. Tobacco dependence, chronic, present on admission, stable. -Patient reports he smokes 1-5 cigarettes a day and reports he would like to quit. -Previously counseled the patient regarding smoking cessation during admission yesterday. -Continue Nicoderm patch daily to avoid nicotine withdrawal. 4. Positive urine toxicology for methamphetamines, present on admission. Active. -UDS positive for methamphetamines and amphetamines. Patient denies use and reports his significant other smokes it and he used a vap she had smoked methamphetamines out of to smoke tobacco. Questionable withdrawal from methamphetamines as patient was highly anxious and left Against Medical Advice on 07/24. Consulted CASE MANAGEMENT SOCIAL WORKER for CD assessment and we appreciate her time and recommendations. Code status: Full code, patient designates his significant other base surrogate decision maker. VTE prophylaxis: Enoxaparin Disposition: Patient will discharge home in 1-2 days likely as infection resolves. Quality VTE Deep Vein Thrombosis/Pulmonary Embolism Present on Admission: No
--- NOTE | 2020-07-25 16:47 | PT-IP ANOTE ---
Checked on pt at noon and at 1500 today to initiate PT evaluation but pt was too sleepy to attend to conversation or to task. Will attempt to see pt 07/26 AM.
[2020-07-25] MEDS: IBUPROFEN 600 MG TABLET PO (18:34)
[2020-07-25] MEDS: SODIUM CHLORIDE 0.9% FLUSH 10 ML IV (21:42)
--- NOTE | 2020-07-25 23:04 | PC.NURSE ---
Pt spent majority of shift sleeping, arousable to touch and occasionally voice. swelling persists on R leg. Pain controlled well with PO non-narcotic medications. Weakness persists. Intermittent abx.
[2020-07-26] VITALS (9 sets, daily range): BP systolic 124–135; BP diastolic 71–84; PULSE 77–87; RESP 15–20; TEMP 36.3–36.9; O2SAT 95–99
[2020-07-26] MEDS: PIPERACILLIN-TAZO 3.375 GM/50 ML FROZ.PIGGY IV ×4 (03:53→22:23)
[2020-07-26] MEDS: SODIUM CHLORIDE 0.9% FLUSH 10 ML IV ×3 (03:53→20:46)
[2020-07-26] MEDS: OXYCODONE IR 10 MG TABLET PO ×4 (04:11→20:45)
--- NOTE | 2020-07-26 04:51 | PC.NURSE ---
Patient asleep most of shift. Awoke at 0400 and assessed. States he is in 7/10 pain in right LE which he describes as raw. Declined Tylenol and/or Ibuprofen stating if it doesn't help why take it so was medicated with Oxycodone which was earlier prescribed by Larry PEDROZA. Is alert and oriented. Breath sounds CTA with RA sat of 95-97%. HRR. Denies nausea. BT present and abdomen is soft. Using urinal in bed to void; denies dysuria, frequency or urgency. Is able to move himself. Right LE elevated on pillows and is wrapped from toe to knee with samira wrap and only noted 1+ edema. Skin on medial aspect of right thigh is pink but within markings previously drawn. Gait not assessed as not out of bed. Refusing to wear SCD on left LE so reminded to ankle wave. Fall risk score is moderate and bed alarm is activated.
[2020-07-26] MEDS: VANCOMYCIN 1,500 MG/300 ML PIGGYBACK 200 MG IV ×3 (05:36→23:18)
[2020-07-26 06:40] LABS: Add Manual Diff / Slide Review NO; Basophils Absolute Auto 100 /uL (0-100); Basophils Percent Auto 0.8 % (0-2); Eosinophils Absolute Auto 400 /uL (0-450); Hematocrit 42.2 % (41-53); Hemoglobin 14.4 g/dL (13.5-17.5); Lymphocytes Absolute Auto 1500 /uL (1100-4500); Lymphocytes Percent Auto 14.6 % (25-40); Mean Corpuscular HGB Conc 34.1 % (30-36); Mean Corpuscular Hemoglobin 31.6 PG (26-34); Mean Corpuscular Volume 92.6 fL (80-100); Monocytes Absolute Auto 1100 /uL (0-900); Monocytes Percent Auto 10.3 % (3-14); Neutrophils Absolute Auto 7200 /uL (1500-7000); Neutrophils Percent Auto 70.3 % (50-75); Platelet Count 280 X10^3/uL (150-400); Red Blood Cell Count 4.56 X10^6/uL (4.5-5.9); Red Cell Distribution Width 13.4 % (11.6-14.8); White Blood Cell Count 10.3 X10^3/uL (4.5-11.0)
[2020-07-26 06:52] LABS: C-Reactive Protein Quant 10.8 mg/dL (<1.0)
[2020-07-26] MEDS: NICOTINE 14 PATCH 14 MG TOP (09:10)
[2020-07-26] MEDS: DOCUSATE 100 MG CAPSULE PO ×2 (09:10→20:45)
--- NOTE | 2020-07-26 11:25 | PT.IIE ---
Surgical History (Last Reviewed 07/25/20 @ 01:58 by Issac Fry DO) History of hand surgery History of lumbosacral spine surgery Hx of cervical spine surgery Medical History (Last Reviewed 07/25/20 @ 01:58 by Issac Fry DO) Cellulitis History of MRSA infection Sprain of left shoulder Tobacco dependence Physical Therapy Inpatient Evaluation/Re-Eval M1 PT/OT-IP Prior Functional Status Start: 07/25/20 09:08 Freq: NEEDED Status: Active Protocol: Document 07/26/20 11:21 DE (Rec: 07/26/20 12:01 DE [id number]) Medical Review Prior Functional Status Medical History Reviewed Yes Diet/Fluid Consistency Regular Communication WNL. No deficits noted. Able to make needs known. Mobility and Gait IND for all mobility and amb without AD at baseline. Pt had to limp after amb 1-2 miles d /t LLE numbness from back issue. Activities of Daily Living and IADL's IND for all ADLs and IADLs at baseline. Prior Functional Level (Other details) Hx of multiple back surgeries. Social History Household Members significant other Living Arrangements Mobile home Number of Floors (Floors) One Floor Number of Stairs To Enter/Railing? 3 QUENTIN without railing. No steps inside. Home Environment Standard Height Toilet,Walk in Shower Employment Status Unemployed Additional Social History Comment Pt lives with his significant other who will be available to assist if needed. His daughter also lives closeby and is able to help. Pt is unemployed and permanently disabled d/t back injury. M2 PT-IP Current Condition Start: 07/25/20 09:08 Freq: NEEDED Status: Active Protocol: Document 07/26/20 11:21 DE (Rec: 07/26/20 12:01 DE [id number]) Physical Therapy Current Condition Current Condition Evaluation Date 07/26/20 Treatment Diagnosis RLE cellulitis; Difficulty with walking Onset Date 07/24/20 M3 PT-IP Subjective Start: 07/25/20 09:08 Freq: NEEDED Status: Active Protocol: Document 07/26/20 11:21 DE (Rec: 07/26/20 12:01 DE [id number]) Subjective Physical Therapy Visit Type Type Initial Evaluation Visit Start Time 09:25 Visit Stop Time 09:50 Total Visit Minutes 25 Notes SPT Darvin led session under direct supervision of PT Kaelyn throughout session. Number of WET END SUPERVISOR Visits 0 Physical Therapy Visit Comments Patient Comments Pt is agreeable to do PT. Therapy Pain Assessment Pain When Pain Assessed At Rest Pain Present Pain Present Pain Reported Location right lower leg Scale Used 5/10 at rest. 7/10 during WB Description Aching Pain Behaviors Calling Out Pain Management Techniques Timing of Activity with Medications M4 PT-IP Mobility and Gait Start: 07/25/20 09:08 Freq: NEEDED Status: Active Protocol: Document 07/26/20 11:21 DE (Rec: 07/26/20 12:01 DE [id number]) PT-Bed Mobility Assessment Supine to Sit Supine to Sit Standby Assistance,Bedrails Scooting Scooting to Edge of Bed Standby Assistance PT-Transfer Assessment Sit to and From Stand Sit to and from Stand Contact Guard Assistance,Use of Upper Extremities Equipment Transfer Assistive Device None,Gait Belt Orthotic/Prosthetic Devices or Brace: No Transfers Transfer Destination Chair Transfer Technique Stand Step Pivot Transfer Ability Level of Assist Contact Guard Assistance Comments Mobility Comments Pt was lying supine in bed with elevated HOB upon arrival . Pt completed supine to sit at L EOB from flat bed SBA with L bedrail. Pt c/o of back pain at EOB. Pt then performed sit to stand CGA with use of BUE in staggered stance. Pt had majority of WB through his LLE initially but he slowly and gradually increased WB on his RLE. After standing for ~20 sec, pt amb ~200 ft total out of his room, in the hallway, to the stairs , and back to his room with SBA. Pt demonstrated limping, which improved as he amb more. Pt performed 3 steps x1 without railing CGA. Pt used step-to pattern for both ascending and descending. Pt was instructed to lead with LLE to ascend and RLE to descend and pt demonstrated understanding. After stair climbing, pt amb back to the room and sat down in the chair with SBA. Pt was reclined in the chair. Call light placed within reach and pt was instructed to call the nurse when he wants to get up and move around. Gait Assessment Gait Gait Assistance Required: Standby Assistance Distance (Feet) 200 Assistive Devices Assistive Device Gait Belt Orthotic/Prosthetic Devices or Brace: No Gait Deviations General Gait Pattern Antalgic,Decreased Stride Length,Decreased Feet Clearance Factors Limiting Gait Function Factors Limiting Gait Function Decreased Activity Tolerance, Decreased Strength,Limited Range of Motion,Pain Comments Gait Comments See mobility comments. Stair Climbing Assessment Evaluation Level of Assist On Stairs Contact Guard Assistance Technique/Endurance Stair Climbing Direction Ascend and Descend Stair Climbing Technique Step to Step Number of Steps Climbed 3 Query Text: Stair Climbing Set # Repetitions (reps) 1 Comments Stair Climbing Comments See mobility comments. PT-Balance Assessment Sitting Balance and Reactions Static Sitting Balance Ability Normal Dynamic Sitting Balance Ability Normal Standing Balance and Reactions Static Standing Balance Ability Normal Dynamic Standing Balance Ability Good M5 PT-IP Objective Assessments Start: 07/25/20 09:08 Freq: NEEDED Status: Active Protocol: Document 07/26/20 11:21 DE (Rec: 07/26/20 12:01 AK [id number]) Orientation Orientation/Cognition Level of Alertness Alert Orientation Name,Age,Birthday,Month,Date, Year,Day of Week,Place, Situation Language Function Ability No Deficits Noted Safety Awareness Understands Safety Issues Memory Description No Deficits Noted Gross Range of Motion Lower Extremity ROM Assessment Right Impaired Impairments RLE limited d/t pain and swelling. Strength Lower Extremity Strength Assessment Right Impaired Ankle 3+ Comments Strength Comments RLE limited d/t pain and swelling. Coordination Assessment Gross Coordination Gross Coordination WNL Sensation Assessment Sensation Gross Sensation WNL Light Touch Intact Muscle Tone Muscle Tone WNL Yes M6 PT-IP Treatment Start: 07/25/20 09:08 Freq: NEEDED Status: Active Protocol: Document 07/26/20 11:21 DE (Rec: 07/26/20 12:01 DE [id number]) Physical Therapy Treatment Education Education Provided Safety Other Treatments Other Treatment Performed Pt was educated on safety and role of PT. M7 PT-IP Assessment and Plan Start: 07/25/20 09:08 Freq: NEEDED Status: Active Protocol: Document 07/26/20 11:21 DE (Rec: 07/26/20 12:01 DE [id number]) PT Summary Assessment and Plan Potential Rehabilitation Potential Excellent Status of Condition at Evaluation Evolving Summary Impairments Pain,ROM,Strength,Balance,Bed Mobility,Transfers,Gait, Activity Tolerance Assessment Summary Issac is a 44 yo male who was admitted to the hospital for cellulitis in RLE with hx of multiple back surgeries. At baseline, pt was IND for all mobility and amb without AD. Pt had difficulty walking more than 1-2 miles d/t LLE numbness from his back problem . On evaluation, pt required CGA-SBA for all mobility, transfers, amb, and stair climbing without AD. PT anticipates pt will be safe to d/c home with assistance. Goals Bed Mobility Goal Independent Transfer Goal Independent Gait Goal Independent Gait Distance 200 Days to Meet Goals 3 Frequency of Treatment Frequency Of Treatment Once a Day Treatment Plan Physical Therapy Treatment Plan Bed Mobility Training,Transfer Training,Gait Training, Therapeutic Exercise,Balance Retraining,Discharge Planning, Hot or Cold Pack,Neuromuscular Re-ed Recommendations To Nursing Amount of Assist Needed Standby Assistance Discharge Recommendations PT Discharge Recommendations Home with Assistance Transportation Needs at Discharge Private Vehicle Treatment was provided by Darvin Chambers, LUCIA and supervised by Kaelyn Ponce, PT. I personally reviewed this note and agree with its contents.
--- NOTE | 2020-07-26 15:50 | P.PN_ITS ---
Subjective Subjective Date Patient Seen: 07/26/20 Interval history: 44-year-old male admitted to the hospital with right lower extremity cellulitis. He reports increased swelling of the right lower extremity. He has significant pain around the right ankle. Nursing who was here yesterday came to review his leg. She notes the swelling has improved significantly. Patient is still uncomfortable with pain. Exam Vital Signs (past 8 hours): - 07/26/20 08:00 07/26/20 09:04 07/26/20 11:55 Temperature 98.0 F 98.2 F Pulse Rate 87 83 Respiratory Rate 15 15 Blood Pressure 124/71 132/81 Pulse Oximetry 95 98 96 07/26/20 12:00 Temperature Pulse Rate Respiratory Rate Blood Pressure Pulse Oximetry 95 Oxygen Delivery Method Room Air Oxygen Flow Rate 0 Narrative Exam Narrative: Pleasant gentleman resting comfortably Lungs: Clear to auscultation Cardiac exam: Regular rate and rhythm normal S1-S2 Abdomen: Soft nontender nondistended Extremities: Right lower extremity with swelling and tenderness around the ankle. There is erythema and bruising around the ankle. Lymphangitic spread up the inner thigh has improved. There continues to be some spreading erythema around the upper thigh. There is no warmth noted. There is no fluctuance noted. Right lower extremities specifically the ankle is tender to palpation Per nursing swelling in the lower extremity has improved significantly over the past 24 hours Objective Labs Result Diagrams: 07/26/20 06:30 07/25/20 05:00 Labs: Laboratory Results - last 24 hr 07/26/20 07/26/20 06:30 06:30 WBC 10.3 RBC 4.56 Hgb 14.4 Hct 42.2 MCV 92.6 MCH 31.6 MCHC 34.1 RDW 13.4 Plt Count 280 Neut % (Auto) 70.3 Lymph % (Auto) 14.6 L [place] % (Auto) 10.3 Eos % (Auto) 4.0 Baso % (Auto) 0.8 Neut # (Auto) 7200 H Lymph # (Auto) 1500 [place] # (Auto) 1100 H Eos # (Auto) 400 Baso # (Auto) 100 C-Reactive Protein 10.8 H PFSH Medical History Cellulitis History of MRSA infection Sprain of left shoulder Tobacco dependence Surgical History History of hand surgery History of lumbosacral spine surgery Hx of cervical spine surgery Family History Mother Medical history unknown Father No problems noted. Social History household members: significant other Smoking Status: Current every day smoker alcohol intake: current Assessment & Plan Assessment & Plan narrative: Right lower extremity cellulitis, acute, present on admission, active. -Patient presented with progressive worsening right lower extremity pain, erythema, and edema with associated tacycardia, high fevers and chills. On admission, the erythema extended beyond previous the outlined margins. Patient has a history of previous MRSA hand infection. -Previous CT right lower extremity with contrast on 07/23/2020 diffuse subcutaneous edema/cellulitis of right lower leg and medial ankle with no discrete abscess and enlarged right inguinal lymph nodes, measuring up to 1.8 cm. If not improving readily with IV antibiotics and conservative means especially around foot and ankle consider repeat CT. -Previous Venous Doppler ultrasound was negative for DVT on 07/23/2020. -Initial WBC normal at 7.9 and procalcitonin normal 0.14. -Previous ESR elevated at 26 and CRP elevated at 22 now down to 14.0. -Restarted vancomycin with dosing per pharmacy and broadened antibiotic coverage with Zosyn 3.375 g IV every 6 hours to treat gram positive, gram negative, pseudomonas, and anaerobes. Patient did not fill previous prescription for Bactrim DS and keflex. -Continue conservative management and kept right lower extremity dry, clean, elevated above the level of the heart and wrapped with SAMUEL wrap for compression. -swelling of the right lower extremity improved -will continue IV antibiotic -anticipate discharge within 1-2 days 2. Acute lactic acidosis, present on admission. Resolved. -Secondary to right lower extremity cellulitis and treated as above. -Initial lactate 3.0 and resolved with IV fluids to 1.2. 3. Prediabetes, newly diagnosed, chronic, present on admission, stable. -Hemoglobin A1c 5.7% which is just on the cusp of prediabetes and places patient at higher risk of infection and delayed wound healing. -Counseled the patient on lifestyle modification including diet and exercise. -Consulted dietitian but not obtained as patient left AMA. -will re-consult dietary 3. Tobacco dependence, chronic, present on admission, stable. -Patient reports he smokes 1-5 cigarettes a day and reports he would like to quit. -Previously counseled the patient regarding smoking cessation during admission yesterday. -Continue Nicoderm patch daily to avoid nicotine withdrawal. 4. Positive urine toxicology for methamphetamines, present on admission. Active. -UDS positive for methamphetamines and amphetamines. Patient denies use and reports his significant other smokes it and he used a vap she had smoked methamphetamines out of to smoke tobacco. Questionable withdrawal from methamphetamines as patient was highly anxious and left Against Medical Advice on 07/24. Consulted COMPUTER NETWORK SUPPORT SPECIALIST for CD assessment and we appreciate her time and recommendations. Code status: Full code, patient designates his significant other base surrogate decision maker. VTE prophylaxis: Enoxaparin Quality VTE Deep Vein Thrombosis/Pulmonary Embolism Present on Admission: No
[2020-07-26] MEDS: SODIUM CHLORIDE 0.9% 250 ML 21 ML IV (22:23)
--- NOTE | 2020-07-26 23:23 | PC.NURSE ---
pt took had a shower tonight. RLE elevated with acewrap. pt refused ice packs. oxycodone for pain. refused SCDs. call light in reach.
[2020-07-27 00:15] VITALS: BP 140/81; PULSE 84; RESP 14; TEMP 36.8; O2SAT 99
[2020-07-27] MEDS: PIPERACILLIN-TAZO 3.375 GM/50 ML FROZ.PIGGY IV ×2 (03:52→09:21)
[2020-07-27 05:15] VITALS: BP 132/85; PULSE 74; RESP 16; TEMP 36.4; O2SAT 97
[2020-07-27] MEDS: VANCOMYCIN 1,500 MG/300 ML PIGGYBACK 200 MG IV (05:29)
[2020-07-27] MEDS: OXYCODONE IR 10 MG TABLET PO ×2 (05:31→09:14)
[2020-07-27 05:40] VITALS: O2SAT 98
[2020-07-27 09:00] VITALS: BP 118/87; PULSE 85; RESP 16; TEMP 36.4; O2SAT 98
[2020-07-27] MEDS: ENOXAPARIN 40 MG/0.4 ML SYRINGE SUBCUT (09:13)
[2020-07-27] MEDS: DOCUSATE 100 MG CAPSULE PO (09:13)
[2020-07-27] MEDS: IBUPROFEN 600 MG TABLET PO (09:13)
[2020-07-27] MEDS: SODIUM CHLORIDE 0.9% FLUSH 10 ML IV (09:15)
[2020-07-27] MEDS: NICOTINE 14 PATCH 14 MG TOP (09:15)
--- NOTE | 2020-07-27 11:30 | CM.DPNOTE ---
DCP/continued: Received notification from provider that patient medically stable for discharge today. Provider indicates that patient will be discharging with po antibiotics. No additional needs identified. P: Home today. PAUL Nicole
[2020-07-27 11:37] VITALS: BP 120/69; PULSE 91; RESP 16; TEMP 36.6
--- NOTE | 2020-07-27 12:04 | PT-IP ANOTE ---
Checked on pt twice this AM with pt refusing at first attempt. On second attempt, pt had discharge order. He denied any rehab needs or any concerns about mobility at home. Pt is deemed safe for discharge from therapy perspective.
--- NOTE | 2020-07-27 12:12 | PC.NURSE ---
Day shift note: Patient awake, alert, and liliya. Tolerating PO intake, and voiding. Up OOB bed to BR, ambulating in room. Dressed self independently. Erythema to RLE improving significantly from previous day. Continue elevated. Pain controlled with Oxycodone as ordered, adequately. Discharge instructions given to patient, discussed importance with F/U with new PMD, antibiotic adherence, and s/sx of worsening infection.
[2020-07-27 13:00] VITALS: O2SAT 98
--- NOTE | 2020-07-27 13:25 | PT-IP ANOTE ---
RN called to inform this PT that the pt had a mobility-related question. Checked on pt who wondered if he should go home with crutches. He was having concern about getting to and from the shower facility. PT screened pt's gait with SPC which he was able to coordinate. However, he ended up deciding he was as safe without an assistive device as he was with one. Pt to discharge without AD.
--- NOTE | 2020-07-28 17:09 | P.DS_ITS ---
History of Present Illness History of Present Illness Date Patient Seen: 07/28/20 Chief complaint: Leg infection Narrative: Issac Tan is a 44-year-old male with past medical history si gnificant for tobacco dependence and previous MRSA right hand tenosynovitis status post I&D and washout 2 years ago who presented to the ED with worsening right leg pain redness and swelling. The patient was admitted to the hospital yesterday with diagnosis of cellulitis and chose to leave against medical advice this morning. He was refusing care removed his IV and does depart the facility stating he had ?family issues?. At that time the patient was discharged with antibiotics, Keflex 500 mg 4 times a day and Bactrim ds twice daily. The patient returns this evening describing worsening pain requesting treatment. The patient has not picked up or started his antibiotic prescriptions. Patient complains of generalized aches and pains, fevers and chills but denies headaches or dizziness or nausea vomiting. He has no complaints of chest pain or palpitations, shortness of breath cough or wheezing. He has no abdominal pain denies constipation with his last bowel movement being yesterday morning. He denies urinary symptoms. Upon arrival to the ER the patient is afebrile with a temperature 98.8?, tachycardic 1 1, blood pressure 161/90, respirations 16 saturating 99% on room air. No further imaging was undertaken. On laboratory analysis he has white count of 7.9, hemoglobin of 15.1, hematocrit of 44.2 and platelets of 241. His electrolytes are within normal limits and has a BUN of 11 and creatinine 0.67. His nonfasting glucose is 110. Has a total bilirubin 0.6, AST of 50, ALT of 64 and alkaline phosphatase of 176. Has elevated lactate at 3.0 and procalcitonin of 0.19. The patient is readmitted to the hospital service for worsening cellulitis. Discharge Providers Provider Date of admission: 07/24/20 20:10 Discharge Date: 07/27/20 Consults: 07/24/20 21:08 Consult to Discharge Planning Routine Comment: Consult to Physical Therapy Evaluate & Treat Comment: Physician Instructions: Evaluate and Treat Discharge provider: Radha Shetty MD Summary Hospital Course Discharge Diagnosis: 1. Right lower extremity cellulitis 2. Tobacco dependence Hospital Course: Patient was admitted to the hospital for right lower extremity cellulitis. He initially left the hospital Against Medical Advice but then returned the following day for treatment. He was placed on IV Zosyn plus vancomycin. With leg elevation the swelling improved. The overall erythema and edema improved as well. Patient made slow but steady progress. He was anxious to discharge and felt to be appropriate to discharge home. His antibiotic was switched to Augmentin. He will follow-up with primary care at discharge. Exam Vital Signs (past 8 hours): Oxygen Delivery Method Room Air Oxygen Flow Rate 0 Narrative Exam Narrative: Pleasant gentleman in no acute distress Lungs: Clear to auscultation Cardiac exam: Regular rate rhythm normal S1-S2 Abdomen: Soft and nontender Extremities: Right lower extremity with edema, erythema around the ankle. This improved. Lymphangitic spread had resolved. Patient continued to have a faint Salman pink cellulitis but appear to be improving over the past 24 hours Objective Labs Result Diagrams: 07/26/20 06:30 07/25/20 05:00 [facility] Medical History Cellulitis History of MRSA infection Sprain of left shoulder Tobacco dependence Surgical History History of hand surgery History of lumbosacral spine surgery Hx of cervical spine surgery Family History Mother Medical history unknown Father No problems noted. Social History household members: significant other Smoking Status: Current every day smoker alcohol intake: current Discharge Assessment & Plan Assessment and Plan Assessment: 1. Right lower extremity cellulitis 2. Nicotine dependent Plan of Treatment: Medications as prescribed Follow-up with primary care provider in 1-2 weeks Discharge Plan Discharge Plan Patient Disposition: Home Discharge orders & Medications Prescriptions: New oxycodone 5 mg Tablet 5 mg PO Q4HR PRN (Reason: Pain, Moderate (4-6)) Qty: 20 RF: 0 amoxicillin-pot clavulanate [Augmentin] 875-125 mg tablet 1 tab PO BID Qty: 20 RF: 0 Discontinued sulfamethoxazole-trimethoprim [Bactrim DS] 800-160 mg tablet 1 tab PO BID Qty: 18 RF: 0 cephalexin [Keflex] 500 mg capsule 500 mg PO QID Qty: 36 RF: 0 Discharge Health Status Multidrug resistant organism: No MDRO Diet/Activity/Treatments Diet: Diet as Tolerated Quality VTE Deep Vein Thrombosis/Pulmonary Embolism Present on Admission: No
== END 2020-07-27 13:44 | disposition home or self-care (01) | DRG 603 ==
LOC: ED 18:19 → AC 20:44
PROVIDERS: Admitting Provider Nurse Practitioner Adult Health; Emergency Provider Emergency Medicine; Referring Provider Emergency Medicine; Visit Provider Nurse Practitioner Adult Health
DX: L03.115 Cellulitis of right lower limb (principal); R74.02 Elevation of levels of lactic acid dehydrogenase [LDH]; R73.03 Prediabetes; F17.210 Nicotine dependence, cigarettes, uncomplicated
CPT/HCPCS: 36415; 80048; 80053; 80305; 81001; 83605; 84145; 85025; 86140; 87635; 97162; 99283; J1650; J2543